=== PATIENT | male | born 1935 | race Caucasian/White ===

== ENCOUNTER 2020-03-28 13:42 | Inpatient (IN) | payer MEDICARE, MEDICAID ==
[~2020-03-28] VITALS: Ht 172.7 cm; Wt 87.0 kg
--- NOTE | 2020-03-28 14:01 | PHYS DOC ---
Past History Past Medical History: A-Fib, Diabetes, Hypertension Alcohol Use: None General Adult EDM: Chief Complaint: MEDICAL CLEARANCE HPI: HPI: Patient is an 84-year-old male, who [place], who has been referred for [facility] admission. according to report, patient has been exhibiting threatening behavior, and aggressiveness towards staff. The patient himself denies any complaints at this time. There are no alleviating or exacerbating factors to his symptoms. There is no medication list available to me that accompanied the patient's paperwork. Review of Systems: Review of Systems: Constitutional: Denies fever or chills Eyes: Denies change in visual acuity HENT: Denies nasal congestion or sore throat Respiratory: Denies cough or shortness of breath Cardiovascular: Denies chest pain or edema GI: Denies abdominal pain, nausea, vomiting, bloody stools or diarrhea : Denies dysuria Musculoskeletal: Denies back pain or joint pain Integument: Denies rash Neurologic: Denies headache, focal weakness or sensory changes Endocrine: Denies polyuria or polydipsia Lymphatic: Denies swollen glands Psychiatric: Denies depression or anxiety Heart Score: Risk Factors: Risk Factors: DM, Current or recent (<one month) smoker, HTN, HLP, family history of CAD, obesity. Risk Scores: Score 0 - 3: 2.5% MACE over next 6 weeks - Discharge Home Score 4 - 6: 20.3% MACE over next 6 weeks - Admit for Clinical Observation Score 7 - 10: 72.7% MACE over next 6 weeks - Early Invasive Strategies Physical Exam: PE: PHYSICAL EXAM: CONSTITUTIONAL: Well developed, well nourished HEAD: normocephalic, atraumatic EENT: PERRL, EOMI. Conjunctivae normal color, sclerae non-icteric; moist mucous membranes. NECK: Supple, non-tender; no meningismus. LUNGS: Lungs CTA, breathing even and unlabored. Normal air movement. HEART: Regular rate and rhythm, no murmur CHEST: No deformity; non-tender ABDOMEN: The abdomen is soft, and non-tender, no masses or bruits. EXTREM: Normal ROM; no deformity, no calf tenderness. Normal pulses palpable in all extremities. There is no pedal edema. SKIN: No rash; no diaphoresis NEURO: Alert; normal speech and cognition; CN's grossly intact; strength grossly intact without focal deficit. BACK: No CVA TTP. Current Patient Data: Labs: Laboratory Tests Test 03/28/20 14:06 03/28/20 14:10 Urine Collection Type Void Urine Color Yellow Urine Clarity Clear Urine pH 5.0 Urine Specific [place] 1.015 Urine Protein 30 mg/dl Urine Glucose (UA) Neg mg/dL Urine Ketones (Stick) Neg mg/dL Urine Blood Neg Urine Nitrite Neg Urine Bilirubin Neg Urine Urobilinogen Dipstick 0.2 mg/dL Urine Leukocyte Esterase Neg Urine RBC Rare /HPF Urine WBC 1-4 /HPF Urine Squamous Epithelial Cells Few /LPF Urine Bacteria 0 /HPF Urine Hyaline Casts Occ /HPF Urine Mucus Slight /LPF White Blood Count 7.6 x10^3/uL Red Blood Count 3.95 x10^6/uL Hemoglobin 13.6 g/dL Hematocrit 39.4 % Mean Corpuscular Volume 100 fL Mean Corpuscular Hemoglobin 35 pg Mean Corpuscular Hemoglobin Concent 35 g/dL Red Cell Distribution Width 13.4 % Platelet Count 226 x10^3/uL Neutrophils (%) (Auto) 73 % Lymphocytes (%) (Auto) 13 % Monocytes (%) (Auto) 8 % Eosinophils (%) (Auto) 5 % Basophils (%) (Auto) 1 % Neutrophils # (Auto) 5.5 x10^3uL Lymphocytes # (Auto) 1.0 x10^3/uL Monocytes # (Auto) 0.6 x10^3/uL Eosinophils # (Auto) 0.4 x10^3/uL Basophils # (Auto) 0.1 x10^3/uL Sodium Level 139 mmol/L Potassium Level 3.9 mmol/L Chloride Level 104 mmol/L Carbon Dioxide Level 24 mmol/L Anion Gap 11 Blood Urea Nitrogen 11 mg/dL Creatinine 0.8 mg/dL Estimated GFR (Cockcroft-Gault) 92.1 BUN/Creatinine Ratio 14 Glucose Level 123 mg/dL Calcium Level 8.4 mg/dL Magnesium Level 1.7 mg/dL Total Bilirubin 0.5 mg/dL Aspartate Amino Transf (AST/SGOT) 21 U/L Alanine Aminotransferase (ALT/SGPT) 32 U/L Alkaline Phosphatase 67 U/L Total Protein 6.3 g/dL Albumin 3.5 g/dL Albumin/Globulin Ratio 1.3 EKG: EKG: Atrial fibrillation at a rate of 80 bpm, normal axis, normal intervals. There are no acute ischemic ST/T changes. [] Radiology/Procedures: Radiology/Procedures: [] Course & Med Decision Making: Course & Med Decision Making Pertinent Labs studies reviewed. (See chart for details) [] Patient is medically clear for [facility] admission. Dragon Disclaimer: Dragon Disclaimer: This electronic medical record was generated, in whole or in part, using a voice recognition dictation system. Departure Departure: Impression: Primary Impression: Behavioral disorder Disposition: ADMITTED INPATIENT Condition: STABLE Referrals: ANIL JAEGER MD (PCP) Justification of Admission: Justification of Admission: Justification of Admission Dx: Yes Altered Mental Status: Altered Mental Status SAWYER CHACKO MD Mar 28, 2020 14:01
--- NOTE | 2020-03-28 14:20 | EKG ---
[address] [address] Test Date: 2020-03-28 Test Time: 13:59:19 Pat Name: LANE HALL Department: Room: Gender: Adaptive Physical Education Specialist: : [id number] Requested By: SAWYER CHACKO Order Number: [id number] Reading MD: Bronson Martin MD Measurements Intervals [place] Rate: P: NE: QRS: QRSD: T: QT: QTc: Interpretive Statements ATRIAL FIBRILLATION NON-SPECIFIC ST/T CHANGES Electronically Signed On 04-04-2020 13:26:06 CDT by Bronson Martin MD
[2020-03-28 14:30] LABS: BASO # 0.1 x10^3/uL (0.0-0.2); BASO % 1 % (0-3); EOS # 0.4 x10^3/uL (0.0-0.7); EOS % 5 % (0-3); HEMATOCRIT 39.4 % (39.0-53.0); HEMOGLOBIN 13.6 g/dL (13.0-17.5); LYMPH % 13 % (24-48); MEAN CORPUSCULAR HEMOGLOBIN 35 pg (25-35); MEAN CORPUSCULAR HGB CONC 35 g/dL (31-37); MEAN CORPUSCULAR VOLUME 100 fL (79-100); MONO # 0.6 x10^3/uL (0.0-1.1); MONO % 8 % (0-9); NEUT # 5.5 x10^3uL (1.8-7.7); NEUT % 73 % (31-73); PLATELET COUNT 226 x10^3/uL (140-400); RED BLOOD COUNT 3.95 x10^6/uL (4.30-5.70); RED CELL DISTRIBUTION WIDTH 13.4 % (11.5-14.5); WHITE BLOOD COUNT 7.6 x10^3/uL (4.0-11.0)
[2020-03-28 14:40] LABS: BACTERIA,URINE 0 /HPF (0-FEW); BILIRUBIN,URINE NEG (NEG); CLARITY,URINE CLEAR; COLOR,URINE YELLOW; GLUCOSE,URINE NEG (NEG); NITRITE,URINE NEG (NEG); RBC,URINE RARE /HPF (0-2); SQUAMOUS EPITHELIAL CELL,UR FEW /LPF; UROBILINOGEN,URINE 0.2 mg/dL (0.2 mg/dL)
[2020-03-28 14:41] LABS: CALCIUM 8.4 mg/dL (8.5-10.1); CREATININE 0.8 mg/dL (0.7-1.3); GFR 92.1; POTASSIUM 3.9 mmol/L (3.5-5.1)
[2020-03-28 14:41] LABS: HYALINE CASTS, URINE OCC /HPF
[2020-03-28 14:47] LABS: ALBUMIN 3.5 g/dL (3.4-5.0); ALBUMIN/GLOBULIN RATIO 1.3 (1.0-1.7); MAGNESIUM 1.7 mg/dL (1.8-2.4); TOTAL BILIRUBIN 0.5 mg/dL (0.2-1.0); TOTAL PROTEIN 6.3 g/dL (6.4-8.2)
--- NOTE | 2020-03-28 15:50 | NUR ---
Admission Note with Justification for Admission to [facility] Patient admitted to [facility] for protective oversight for emergency stabilization of acute psychiatric crisis. Pt admitted from: Hospital ER Mode of arrival: EMS Accompanied By: EMS Precipitating behaviors that initiated intake and admission: Increased s/s of depression when brother passed, increased verbal aggression, agitated, tells staff he has a gun in his room, threatening staff, talks of killing President, cursing, talks of running over peoples heads, vivid nightmares, barricades his room door, poor hygiene. Description of failure of out patient attempts at stabilization in previous setting list behavior and medication trials: redirection, decreased stimulation, started lexapro, UA. Behaviors and assessment findings upon admission: calm, cooperative, interactive, and compliant. No agitation, no aggression, no hallucination, no delusions. Pt states he is here d/t a misunderstanding. He stated someone overheard him state he wants to kill President Timoteo. Pt denies SI at this time. Plan: Admit for protective oversight for adjustment and stabilization of medications, behaviors and mood. Intense treatment regimen including groups, medication adjustments, therapy, consistent regimen for ADL's, self care, and sleep hygiene. Daily monitoring by Inpatient staff, Psychiatry, and Medical Physician.
[2020-03-28] MEDS ORDERED: METHYL SALICYLATE/MENTHOL TOPICAL OINTMENT 57GM TUBE. TP PRN (17:45)
[2020-03-28] MEDS ORDERED: MAGNESIUM HYDROXIDE 2,400 MG/30 ML ORAL.SUSP. PO PRN (17:45)
[2020-03-28] MEDS ORDERED: MAG HYDROX/AL HYDROX/SIMETH 30 ML ORAL.SUSP PO PRN (17:45)
[2020-03-28] MEDS ORDERED: FEXO180T81 PO (18:37)
[2020-03-28] MEDS ORDERED: IPRA3AMP29 NEB (18:37)
[2020-03-28] MEDS ORDERED: TAMS0.4C97 PO (18:37)
[2020-03-28] MEDS ORDERED: TIMO5DRO26 OD (18:37)
[2020-03-28] MEDS ORDERED: OMEP20TA8 PO (18:37)
[2020-03-28] MEDS ORDERED: GLIM2TAB7 PO ×2 (18:37→19:45)
[2020-03-28] MEDS ORDERED: CHOL4POW11 PO (18:37)
[2020-03-28] MEDS ORDERED: ESCITALOPRAM OX10 MG PO (18:37)
[2020-03-28] MEDS ORDERED: WARF1TAB2 PO ×2 (18:37)
[2020-03-28] MEDS ORDERED: DONE5TAB56 PO (18:37)
[2020-03-28] MEDS ORDERED: MELA3TAB4 PO (18:37)
[2020-03-28] MEDS ORDERED: FLUT16SP21 NS (18:37)
[2020-03-28] MEDS ORDERED: [UNRECOGNIZED DRUG - CODE] OD (18:37)
[2020-03-28] MEDS ORDERED: MULT-245 PO (18:37)
[2020-03-28] MEDS ORDERED: ATOR10TA60 PO (18:37)
[2020-03-28] MEDS ORDERED: METF10007 PO (18:37)
[2020-03-28] MEDS ORDERED: IRBE300T23 PO (18:37)
[2020-03-28] MEDS ORDERED: FURO-69 PO ×2 (18:37)
[2020-03-28] MEDS ORDERED: IPRA12.9 IH (19:45)
[2020-03-28] MEDS ORDERED: CHOL400T36 PO (19:45)
[2020-03-28] MEDS ORDERED: ACET500T68 PO (19:45)
[2020-03-28] MEDS ORDERED: FUROSEMIDE 20 MG TABLET PO PRN (20:00)
[2020-03-28] MEDS: PANTOPRAZOLE 40 MG TABLET. PO SCH (20:33)
[2020-03-28] MEDS: MELATONIN 3 MG TABLET PO SCH (20:33)
[2020-03-28] MEDS: DONEPEZIL HCL 5 MG TABLET. PO SCH (20:34)
[2020-03-28] MEDS: ACETAMINOPHEN 500 MG TABLET PO SCH (20:34)
[2020-03-28] MEDS: TIMOLOL 0.25% OPHTH SOLUTION 5ML BOTTLE. OD SCH (20:41)
[2020-03-28] MEDS ORDERED: IPRATROPIUM BROMIDE 0.06% NASAL SPRAY 15ML BOTTLE NS PRN (21:00)
--- NOTE | 2020-03-28 22:08 | NUR ---
Nursing note: Assumed care of pt in his room. He was very pleasant, cooperative, and interactive. He denies aggressive behavior and depression. He isn't sure why he is here. A&OX3, no pain, no behaviors.
--- NOTE | 2020-03-28 22:09 | PDOC ---
Exam Note: Xander Note: Please also refer to the separate dictated note~for this date of service dictated separately.~Patient seen individually. Discussed the patient with Nursing staff reviewed the chart.~Reviewed interim history and current functioning. Reviewed vital signs,~Labs/ Radiology~and current medications noted below. Continue current treatment with the changes noted in the dictated addendum note Assessment: Vital Signs/I&O: Vital Signs Date Time Temp Pulse Resp B/P (MAP) Pulse Ox O2 Delivery O2 Flow Rate FiO2 03/28/20 15:27 84 18 128/70 (89) 03/28/20 13:45 98.5 95 Room Air Labs: Laboratory Tests Test 03/28/20 14:06 03/28/20 14:10 Urine Collection Type Void Urine Color Yellow Urine Clarity Clear Urine pH 5.0 Urine Specific [place] 1.015 Urine Protein 30 mg/dl (NEG-TRACE) Urine Glucose (UA) Neg mg/dL (NEG) Urine Ketones (Stick) Neg mg/dL (NEG) Urine Blood Neg (NEG) Urine Nitrite Neg (NEG) Urine Bilirubin Neg (NEG) Urine Urobilinogen Dipstick 0.2 mg/dL (0.2 mg/dL) Urine Leukocyte Esterase Neg (NEG) Urine RBC Rare /HPF (0-2) Urine WBC 1-4 /HPF (0-4) Urine Squamous Epithelial Cells Few /LPF Urine Bacteria 0 /HPF (0-FEW) Urine Hyaline Casts Occ /HPF Urine Mucus Slight /LPF White Blood Count 7.6 x10^3/uL (4.0-11.0) Red Blood Count 3.95 x10^6/uL (4.30-5.70) L Hemoglobin 13.6 g/dL (13.0-17.5) Hematocrit 39.4 % (39.0-53.0) Mean Corpuscular Volume 100 fL (79-100) Mean Corpuscular Hemoglobin 35 pg (25-35) Mean Corpuscular Hemoglobin Concent 35 g/dL (31-37) Red Cell Distribution Width 13.4 % (11.5-14.5) Platelet Count 226 x10^3/uL (140-400) Neutrophils (%) (Auto) 73 % (31-73) Lymphocytes (%) (Auto) 13 % (24-48) L Monocytes (%) (Auto) 8 % (0-9) Eosinophils (%) (Auto) 5 % (0-3) H Basophils (%) (Auto) 1 % (0-3) Neutrophils # (Auto) 5.5 x10^3uL (1.8-7.7) Lymphocytes # (Auto) 1.0 x10^3/uL (1.0-4.8) Monocytes # (Auto) 0.6 x10^3/uL (0.0-1.1) Eosinophils # (Auto) 0.4 x10^3/uL (0.0-0.7) Basophils # (Auto) 0.1 x10^3/uL (0.0-0.2) Sodium Level 139 mmol/L (136-145) Potassium Level 3.9 mmol/L (3.5-5.1) Chloride Level 104 mmol/L (98-107) Carbon Dioxide Level 24 mmol/L (21-32) Anion Gap 11 (6-14) Blood Urea Nitrogen 11 mg/dL (8-26) Creatinine 0.8 mg/dL (0.7-1.3) Estimated GFR (Cockcroft-Gault) 92.1 BUN/Creatinine Ratio 14 (6-20) Glucose Level 123 mg/dL (70-99) H Calcium Level 8.4 mg/dL (8.5-10.1) L Magnesium Level 1.7 mg/dL (1.8-2.4) L Total Bilirubin 0.5 mg/dL (0.2-1.0) Aspartate Amino Transferase (AST) 21 U/L (15-37) Alanine Aminotransferase (ALT) 32 U/L (16-63) Alkaline Phosphatase 67 U/L (46-116) Total Protein 6.3 g/dL (6.4-8.2) L Albumin 3.5 g/dL (3.4-5.0) Albumin/Globulin Ratio 1.3 (1.0-1.7) Current Medications: Meds: Current Medications Medications (Trade) Dose Ordered Sig/Marcelo Route PRN Reason Start Time Stop Time Status Last Admin Dose Admin Donepezil HCl (Aricept) 5 mg QHS PO 03/28/20 21:00 03/28/20 20:34 Melatonin (Melatonin) 3 mg QHS PO 03/28/20 21:00 03/28/20 20:33 Acetaminophen (Tylenol) 1,000 mg BID PO 03/28/20 21:00 03/28/20 20:34 Pantoprazole Sodium (Protonix) 40 mg QHS PO 03/28/20 21:00 03/28/20 20:33 I have reviewed the current psychotropics carefully including drug interactions. Risk benefit ratio favors no change other than as noted in my dictated progress note. Diagnosis: Problems: (1) Behavioral disorder COURTNEY STARK MD Mar 28, 2020 22:09
[2020-03-29 05:27] VITALS: BP 141/88
--- NOTE | 2020-03-29 08:10 | RAD ---
EXAM: Head CT without contrast. HISTORY: Mental status changes. TECHNIQUE: Computed tomographic images of the head were obtained without contrast. *One or more of the following individualized dose reduction techniques were utilized for this examination: 1. Automated exposure control. 2. Adjustment of the mA and/or kV according to patient size. 3. Use of iterative reconstruction technique. COMPARISON: 02/22/2020. FINDINGS: There is no hemorrhage. There is no mass effect or midline shift. The ventricles are enlarged due to cerebral atrophy. There is no convincing hydrocephalus. There is decreased attenuation within the cerebral white matter, likely due to chronic small vessel disease. No suspicious calvarial lesion is seen. The visualized portions of the orbits, paranasal sinuses mastoid air cells are unremarkable. IMPRESSION: 1. No acute intracranial finding. Note is made that MRI is more sensitive for acute infarction. 2. Bilateral cerebral white matter changes, likely due to chronic small vessel disease. 3. Cerebral volume loss with compensatory enlargement of the ventricles. Electronically signed by: Brooklyn Munoz MD (03/29/2020 8:08 AM) [id number]
[2020-03-29] MEDS: ACETAMINOPHEN 500 MG TABLET PO SCH ×2 (09:16→19:48)
[2020-03-29] MEDS: metFORMIN 500 MG TABLET PO SCH ×2 (09:16→17:28)
[2020-03-29] MEDS: CITALOPRAM 20 MG TABLET. PO SCH (09:17)
[2020-03-29] MEDS: TAMSULOSIN 0.4 MG CAP.ER.24H. PO SCH (09:17)
[2020-03-29] MEDS: ATORVASTATIN CALCIUM 10 MG TABLET. PO SCH (09:17)
[2020-03-29] MEDS: MULTIVITAMIN with MINERAL TABLET. PO SCH (09:17)
[2020-03-29] MEDS: LOSARTAN 25 MG TABLET. PO SCH (09:18)
[2020-03-29] MEDS: GLIMEPIRIDE 2 MG TABLET PO SCH (09:18)
[2020-03-29] MEDS: CETIRIZINE HCL 10 MG TABLET PO SCH (09:18)
[2020-03-29] MEDS: FLUTICASONE 50MCG/NASAL SPRAY 16GM BOTTLE. NS SCH (09:19)
[2020-03-29] MEDS: CHOLESTYRAMINE/ASPARTAME 4 GM PACKET PO SCH (09:20)
[2020-03-29] MEDS: CHOLECALCIFEROL (VITAMIN D3) 1,000 UNIT TABLET PO SCH (09:20)
[2020-03-29] MEDS ORDERED: WARFARIN 1 MG TABLET. PO SCH (09:30)
[2020-03-29] MEDS ORDERED: MINERAL OIL/PETROLATUM TOPICAL CREAM 113GM JAR. TP PRN (11:45)
[2020-03-29 13:25] LABS: THYROID STIM HORMONE (TSH) 2.837 uIU/mL (0.358-3.740)
[2020-03-29] MEDS ORDERED: ANTI-COAG MONITOR BY PHARMACY. MC PRN (14:00)
--- NOTE | 2020-03-29 15:21 | NUR ---
PSYCHOSOCIAL ASSESSMENT ADMISSION DATE: 03/28/20 CONTACT INFORMATION: DPOA/Guardian Contact Name: Dez Kent Contact Phone #: [phone] ETHNIC ORIGIN: REASONS FOR ADMISSION: Aggressive Agitated Angry Depressed Poor impulse control Sig. Change Sleep Other ADDITIONAL ADMISSION COMMENTS: Per intake record, staff had observed Father to be increasingly depressed since the passing of his brother two months ago, increased verbal aggression, irritability, agitation, threatening staff, telling staff he had a gun in his room, cursing, talks of killing the president or running over peoples heads on the ground, barricading his room, poor personal hygiene, and having vivid nightmares. REASON FOR ADMISSION IN PATIENT/FAMILY'S OWN WORDS: Per Father, "The Dez got communication from the [facility] that I was depressed. I said I had a gun." PATIENT/FAMILY EXPECTATIONS FOR ADMISSION: Per Father, "To get out." LIVING SITUATION: Patient lives with: Other living arrangements: [facility] Contact Name: Gricelda-nurse Contact [address]: [address] [place] [id number] Contact Phone #: [phone] Contact Fax #: [phone] FAMILY RELATIONS: Marital Status: Single # of Marriages: 0 # of Children: 0 [facility] Family Support: Additional Comments r/t Family: Father Jayro's nieces and nephews are in touch with him via calls or e-mails. SIGNIFICANT PSYCHIATRIC/MEDICAL HISTORY: Psychiatric/Treatment History: Father Jayro reports no previous psychiatric treatment history. Pertinent Family History: Father Jayro reports no family history of mental illness or substance abuse. HISTORICAL DATA: Childhood Environment: [place] [facility] Additional Comments: Father Jayro was born in [place], [place] to Jonathan and Naomie Das. 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 Father Jayro was the seventh child born of nine boys. Father Jayro was one of three sets of twins. He had a twin brother named Mitchel. All siblings are . Father Jayro recalled his childhood as loving. His father was reported as strict but respected. 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 He also spoke about setting up a library in [facility] for the children and the quaker. Father reports, "I continue to live a monastic life even in the [facility]." service: None Confucianist background: Anabaptist, Father Jayro was raised in the Anabaptist quaker and his family attended services regularly. Sexual orientation: Educational Level: Father attended [employer]ab[employer]ist school and graduated from 12th grade. 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 Father was ordained in [place]. Past/Present Interests/Hobbies: Father has enjoyed traveling, mass, prayer, writing letters and e-mails, reading, and current events. Financial support/resources: Other Monthly income: Unknown, adequate Person handling finances: Dez Kent Do you have a history of legal problems: None Cultural considerations: SOCIAL RELATIONSHIPS-CURRENT/PAST: Psychiatrist: None PCP: Keila Graff Counselor/Therapist: None Veterans[facility] Administration: N/A Support Group: None [employer]ocad Draftsman/Sustainability Coordinator: None Other relationships: Attends coffee club with Sister Aleja three times weekly. STRENGTHS & WEAKNESSES: Patient's strengths: Good verbal skills Education level Ambulatory Patient's weaknesses: Impulsive Health problems Verbally Aggressive PRELIMINARY PLAN OF TREATMENT: Preliminary plan: Dec. Symp. Depression Promote Coping Skill Medication Stabilization Monitor Med Effects Dec. Outbursts Dec. Aggression Other preliminary treatment comments: Father Jayro will be encouraged to participate in SW and recreational therapy while on the unit. DISCHARGE PLANNING: Discharge planning/disposition: Other- [facility] Additional discharge needs identified: Follow up with PCP and psychiatry, if available. ADDITIONAL INFORMATION: Other Pertinent Data: Met with Father Jayro to support related to recent admit and complete psychosocial assessment. Call placed to JAC Tran, with intent to invite to treatment team on 03/31/20. Awaiting return phone call.
--- NOTE | 2020-03-29 15:51 | CONS ---
DATE OF CONSULTATION: 03/29/2020 REASON FOR CONSULTATION: Medical management. 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 Barricades his room door and has poor hygiene, all this in a background of psychotic disorder, unspecified; impulse control disorder. PAST MEDICAL HISTORY: Significant for hypertension, hyperlipidemia, atrial fibrillation, benign prostatic hypertrophy, glaucoma, type 2 diabetes and gastroesophageal reflux disease. He also have obstructive sleep apnea, on CPAP. PAST PSYCHIATRIC HISTORY: Significant for depression and Alzheimer's dementia. PAST SURGICAL HISTORY: Significant for umbilical hernia repair and laser treatment of enlarged prostate. ALLERGIES: He is allergic to ACETAMINOPHEN, CHLORPHENIRAMINE, OXYMETAZOLINE, PHENYLEPHRINE and PSEUDOEPHEDRINE. MEDICATIONS: He is currently on following medications: He is on fexofenadine 180 mg once a day, Aricept 5 mg at bedtime, ipratropium bromide 2 puffs 4 times a day, Flomax 0.4 mg daily, warfarin 2 mg q. Saturday. Warfarin 1 mg daily. He is on cholestyramine with sugar 4 grams powder pack 1/2 a packet daily, atorvastatin calcium 10 mg at bedtime, irbesartan 375 mg once a day, Tylenol 1000 mg twice a day, escitalopram oxalate 10 mg daily, furosemide 20 mg once a day, furosemide 20 mg as needed. Flonase 2 sprays to each nostril once a day, timolol 1 drop to both eyes at bedtime, pilocarpine 1 drop to both eyes twice a day, omeprazole 20 mg at bedtime, metformin 1000 mg twice a day. Glimepiride 2 mg once a day ____ 2 mg daily, multivitamin 1 tablet once a day, melatonin 3 mg at bedtime. FAMILY HISTORY: Noncontributory. 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 He apparently does not smoke, does not drink alcohol or use recreational drugs. REVIEW OF SYSTEMS: The patient did complain of pain in his knee joints and that he is unsteady on his feet. He uses a walker. PHYSICAL EXAMINATION: GENERAL: When I saw him this afternoon, he looked well and was clearly in no apparent respiratory distress. No pallor, jaundice, cyanosis or thyromegaly. No jugular venous distention. No limb edema. VITAL SIGNS: Her heart rate was 86. His blood pressure was 141/88, temperature was 97.3, respiratory rate was 18 and oxygen saturation was 95%. HEAD, EYES, EARS, NOSE AND THROAT: Showed normocephalic, atraumatic. NECK: Supple. HEART: Showed normal first and second heart sounds. No gallop, rub or murmur. CHEST: Clear to auscultation. No crepitation or rhonchi. ABDOMEN: Distended, soft, nontender. NEUROLOGIC: He was awake, alert, responding appropriately. All cranial nerves intact. EXTREMITIES: He moves extremities without difficulty, ambulates with a walker. LABORATORY DATA: Showed a white cell count 7600, hemoglobin 13.6, hematocrit 39.4, MCV 100, and platelet count 226,000. Serum sodium was 139, potassium 3.9, chloride 104, bicarbonate 24, anion gap of 11, BUN 11, creatinine 0.8, estimated GFR was 92 mL per minute. Her glucose was 123, calcium was 8.4, magnesium was 1.7. Serum iron 65, TIBC was 260, iron saturation was 25%. Total bilirubin, AST, ALT, alkaline phosphatase were normal. Total protein 6.3, albumin 3.5. His serum triglycerides were 224, total cholesterol 123, LDL was 44, VLDL was 44 and non-HDL was 88, HDL cholesterol was 55 and the ratio was 3. His TSH was 2.837. Urinalysis was essentially unremarkable except mild proteinuria. Has had a CT scan of the head, which basically showed no hemorrhage. There is no mass effect or midline shift. The ventricles are enlarged due to cerebral atrophy. There is no convincing hydrocephalus. There is increased attenuation within the cerebral white matter, likely due to chronic small vessel disease. No suspicious calvarial lesion is seen. The visualized portions of the orbits, paranasal sinuses and mastoid air cells are unremarkable. 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 All this in a background of psychotic disorder, unspecified; impulse disorder. Medically, he has multiple medical problems including hypertension, hyperlipidemia, type 2 diabetes mellitus, benign prostatic hypertrophy, atrial fibrillation, and gastroesophageal reflux disease; however, by reviewing all his vital signs, lab work and medication, the patient all in all seemed to be medically stable. I would continue with all his current medication. I will review medications that are still pending and make any necessary recommendation. Thank you, Dr. Vilchis for allowing me to participate in the care of this patient. ALVERTO LOYOLA MD DR: KRISHNA/jalen JOB#: [id number] / [id number]
[2020-03-29 16:01] VITALS: BP 132/77
[2020-03-29] MEDS: WARFARIN 1 MG TABLET. PO SCH (17:28)
[2020-03-29] MEDS: PANTOPRAZOLE 40 MG TABLET. PO SCH (19:48)
[2020-03-29] MEDS: MELATONIN 3 MG TABLET PO SCH (19:48)
[2020-03-29] MEDS: TIMOLOL 0.25% OPHTH SOLUTION 5ML BOTTLE. OD SCH (19:48)
[2020-03-29] MEDS: DONEPEZIL HCL 5 MG TABLET. PO SCH (19:48)
[2020-03-29] MEDS: QUEtiapine 25 MG TABLET. PO SCH (19:52)
[2020-03-29] MEDS: MINERAL OIL/PETROLATUM TOPICAL CREAM 113GM JAR. TP SCH (19:52)
[2020-03-29 20:06] LABS: THYROXINE 6.1 ug/dL (4.5-12.0)
--- NOTE | 2020-03-29 21:47 | NUR ---
Nursing note: Assumed care of pt in his room. He is interactive, pleasant, compliant, A&OX3. No behaviors, no c/o pain.
--- NOTE | 2020-03-29 21:51 | PDOC ---
Exam Note: Xander Note: Please also refer to the separate dictated note~for this date of service dictated separately.~Patient seen individually. Discussed the patient with Nursing staff reviewed the chart.~Reviewed interim history and current functioning. Reviewed vital signs,~Labs/ Radiology~and current medications noted below. Continue current treatment with the changes noted in the dictated addendum note Assessment: Vital Signs/I&O: Vital Signs Date Time Temp Pulse Resp B/P (MAP) Pulse Ox O2 Delivery O2 Flow Rate FiO2 03/29/20 16:01 98.6 84 16 132/77 (95) 95 03/29/20 05:27 Room Air I & O 03/28/20 03/28/20 03/29/20 15:00 23:00 07:00 Intake Total 300 ml Balance 300 ml Current Medications: Meds: Current Medications Medications (Trade) Dose Ordered Sig/Marcelo Route PRN Reason Start Time Stop Time Status Last Admin Dose Admin Citalopram Hydrobromide (CeleXA) 20 mg DAILY PO 03/29/20 09:00 03/29/20 09:17 Atorvastatin Calcium (Lipitor) 10 mg DAILY PO 03/29/20 09:00 03/29/20 09:17 Fluticasone Propionate (Flonase) 2 spray DAILY NS 03/29/20 09:00 03/29/20 09:19 Glimepiride (Amaryl) 2 mg DAILY PO 03/29/20 09:00 03/29/20 09:18 Tamsulosin HCl (Flomax) 0.4 mg DAILY PO 03/29/20 09:00 03/29/20 09:17 Vitamin D (Vitamin D3) 2,000 unit DAILY PO 03/29/20 09:00 03/29/20 09:20 Cholestyramine Resin (Questran Light) 2 gm DAILY PO 03/29/20 09:00 03/29/20 09:20 Cetirizine HCl (ZyrTEC) 10 mg DAILY PO 03/29/20 09:00 03/29/20 09:18 Losartan Potassium (Cozaar) 25 mg DAILY PO 03/29/20 09:00 03/29/20 09:18 Metformin HCl (Glucophage) 1,000 mg BIDWMEALS PO 03/29/20 08:00 03/29/20 17:28 Multivitamins/ Calcium (Thera-M Plus) 1 tab DAILY PO 03/29/20 09:00 03/29/20 09:17 Warfarin Sodium (Coumadin) 1 mg QMTUTHSA PO 03/29/20 16:00 03/29/20 17:28 Quetiapine Fumarate (SEROquel) 25 mg QHS PO 03/29/20 21:00 03/29/20 19:52 Multi-Ingred Cream/Lotion/Oil/ Oint (Hydrocerin) 1 eli BID TP 03/29/20 21:00 03/29/20 19:52 I have reviewed the current psychotropics carefully including drug interactions. Risk benefit ratio favors no change other than as noted in my dictated progress note. Diagnosis: Problems: (1) Behavioral disorder (2) Psychotic disorder (3) Impulse control disorder COURTNEY STARK MD Mar 29, 2020 21:51
[2020-03-30 01:07] LABS: HEMOGLOBIN A1C 5.7 % (4.8-5.6)
--- NOTE | 2020-03-30 01:38 | HP ---
ADMIT DATE: 03/28/2020 PSYCHIATRIC ADMISSION HISTORY/EVALUATION "Father Jayro." IDENTIFYING DATA: The patient is an 84-year-old male, referred to us from [facility] in [place], [place], referred by Dr. Keila Smyth and her nurse practitioner on account of increasing symptoms of depression following the time when his brother . He has been increasingly verbally aggressive, agitated, telling staff he has a gun in his room, threatening staff. He talks about killing the president, but has no means or ability to do this since he is in a correction. He has been cursing at staff, talking about running over people's heads. He has been having vivid nightmares, barricades himself in his room. Has poor hygiene. He has been more forgetful and has failed outpatient psychiatric interventions resulting in this referral. CHIEF COMPLAINT: "I have lived most of the past several years in [facility]. I got out of [facility] because they were putting posts on the wall, encouraging people to kill a room service food server." HISTORY OF PRESENT ILLNESS: The patient has a history of early onset dementia, paranoia, worsening symptoms of depression. He has had sleep and appetite changes with increasing mood lability, at times somewhat grandiose as above. No active suicidal ideation. He has no clear homicidal ideation, but makes the above statements. He states he is frustrated with what is going on in politics in [facility]. I met with him at great length in his room the evening of 03/28/2020 shortly after he arrived on the unit. PAST PSYCHIATRIC HISTORY: As above. MEDICAL HISTORY: Positive for atrial fibrillation, diabetes mellitus, GERD, glaucoma, hyperlipidemia, hypertension, sleep apnea, he has a CPAP. History of umbilical hernia, status post [employer] prostate on 08/21/2017. ACCU-CHEKS: Daily. DIET: Regular ADA, takes medications whole. Ambulates with walker. UA on 03/28/2020 was negative. ALLERGIES: ____. CURRENT PSYCHOTROPICS: Aricept 5 mg a day, Lexapro 10 mg a day. FAMILY HISTORY: Noncontributory. SOCIAL HISTORY: No history of alcohol, drug abuse, physical, sexual or elder abuse. He is not known to be a perpetrator. MENTAL STATUS EXAMINATION: The patient was seen individually evening of 03/28/2020 in his room. He is oriented to himself. Thought it was 03/25/2020, knew that he was admitted earlier in the day. Abstraction fair, computation impaired, language function intact, attention span short. Mood and affect depressed. He is quite paranoid, suspicious. No active homicidal ideation. LABORATORY DATA: Reviewed. IMPRESSION: Major depressive disorder with psychotic features versus bipolar disorder, mixed with psychotic features, mild cognitive impairment versus major neurocognitive disorder, vascular with delusion, depression; impulse control disorder; anxiety disorder, unspecified. Rest as above. PLAN: Admit to Geropsychiatry Unit at [facility]. I will see the patient daily individually from a psychiatric standpoint, medical followup with Dr. Hahn. Continue the patient on his current psychotropics. Consider adding Seroquel as a mood stabilizer. Estimated length of stay 10-12 days. DISPOSITION: Plans back to correction when stable. COURTNEY STARK MD DR: JAIMIE/jalen JOB#: [id number] / [id number]
[2020-03-30 06:13] VITALS: BP 135/71
--- NOTE | 2020-03-30 07:57 | PDOC ---
Exam Note: Xander Note: This note is a late entry for 03/29/2020 covers elements not covered in my initial note. Subjective: The patient was seen face to face in the evening of 03/29/2020. Nursing report was with Rut MA. He slept 5-1/4 hours previous night. I met with him at some length in his room in the evening. He has been pleasant, compliant with treatment, has been talking about wishing that the President would . He has been obsessed that he cannot find his watch, remains paranoid. Review of Systems: Ambulation impaired with walker. No CV, , pulmonary, eye system symptoms on review. Mental Status Exam: Reasonably oriented. Speech is coherent. Abstraction fair. Computation is impaired. Language function intact. Attention span short. He is quite paranoid, suspicious. Laboratory Data: Reviewed. Impression: Major depressive disorder with psychotic features. Bipolar disorder mixed with psychotic features. Mild cognitive impairment. Major neurocognitive disorder vascular with delusion, depression. Plan: No change from initial note. Start Seroquel 25 mg h.s. Assessment: Vital Signs/I&O: Vital Signs Date Time Temp Pulse Resp B/P (MAP) Pulse Ox O2 Delivery O2 Flow Rate FiO2 03/30/20 06:13 98.1 71 16 135/71 (92) 97 03/29/20 05:27 Room Air I & O 03/29/20 03/29/20 03/30/20 15:00 23:00 07:00 Intake Total 840 ml 460 ml Balance 840 ml 460 ml Labs: Laboratory Tests Test 03/30/20 06:07 Prothrombin Time 20.8 SEC (9.4-11.4) H Prothrombin Time INR 2.0 (0.9-1.1) H Current Medications: Meds: Current Medications Medications (Trade) Dose Ordered Sig/Marcelo Route PRN Reason Start Time Stop Time Status Last Admin Dose Admin Citalopram Hydrobromide (CeleXA) 20 mg DAILY PO 03/29/20 09:00 03/29/20 09:17 Atorvastatin Calcium (Lipitor) 10 mg DAILY PO 03/29/20 09:00 03/29/20 09:17 Fluticasone Propionate (Flonase) 2 spray DAILY NS 03/29/20 09:00 03/29/20 09:19 Glimepiride (Amaryl) 2 mg DAILY PO 03/29/20 09:00 03/29/20 09:18 Tamsulosin HCl (Flomax) 0.4 mg DAILY PO 03/29/20 09:00 03/29/20 09:17 Vitamin D (Vitamin D3) 2,000 unit DAILY PO 03/29/20 09:00 03/29/20 09:20 Cholestyramine Resin (Questran Light) 2 gm DAILY PO 03/29/20 09:00 03/29/20 09:20 Cetirizine HCl (ZyrTEC) 10 mg DAILY PO 03/29/20 09:00 03/29/20 09:18 Losartan Potassium (Cozaar) 25 mg DAILY PO 03/29/20 09:00 03/29/20 09:18 Metformin HCl (Glucophage) 1,000 mg BIDWMEALS PO 03/29/20 08:00 03/29/20 17:28 Multivitamins/ Calcium (Thera-M Plus) 1 tab DAILY PO 03/29/20 09:00 03/29/20 09:17 Warfarin Sodium (Coumadin) 1 mg QMTUTHSA PO 03/29/20 16:00 03/29/20 17:28 Quetiapine Fumarate (SEROquel) 25 mg QHS PO 03/29/20 21:00 03/29/20 19:52 Multi-Ingred Cream/Lotion/Oil/ Oint (Hydrocerin) 1 eli BID TP 03/29/20 21:00 03/29/20 19:52 I have reviewed the current psychotropics carefully including drug interactions. Risk benefit ratio favors no change other than as noted in my dictated progress note. Diagnosis: Problems: (1) Major depressive disorder with psychotic features (2) Bipolar disorder, curr episode mixed, severe, with psychotic features (3) Major neurocognitive disorder (4) Dementia, vascular, with delirium (5) Dementia, vascular, with delusions (6) Anxiety disorder (7) Psychotic disorder (8) Impulse control disorder COURTNEY STARK MD Mar 30, 2020 07:57
[2020-03-30] MEDS: PILOCARPINE 1% OPHTH SOLUTION 15ML BOTTLE. OD SCH ×2 (09:00→19:52)
[2020-03-30] MEDS: metFORMIN 500 MG TABLET PO SCH ×2 (09:25→16:30)
[2020-03-30] MEDS: CITALOPRAM 20 MG TABLET. PO SCH (09:25)
[2020-03-30] MEDS: ATORVASTATIN CALCIUM 10 MG TABLET. PO SCH (09:25)
[2020-03-30] MEDS: LOSARTAN 25 MG TABLET. PO SCH (09:25)
[2020-03-30] MEDS: GLIMEPIRIDE 2 MG TABLET PO SCH (09:25)
[2020-03-30] MEDS: MINERAL OIL/PETROLATUM TOPICAL CREAM 113GM JAR. TP SCH ×2 (09:25→19:53)
[2020-03-30] MEDS: CETIRIZINE HCL 10 MG TABLET PO SCH (09:25)
[2020-03-30] MEDS: CHOLECALCIFEROL (VITAMIN D3) 1,000 UNIT TABLET PO SCH (09:25)
[2020-03-30] MEDS: TAMSULOSIN 0.4 MG CAP.ER.24H. PO SCH (09:26)
[2020-03-30] MEDS: CHOLESTYRAMINE/ASPARTAME 4 GM PACKET PO SCH (09:26)
[2020-03-30] MEDS: MULTIVITAMIN with MINERAL TABLET. PO SCH (09:26)
[2020-03-30] MEDS: ACETAMINOPHEN 500 MG TABLET PO SCH ×2 (09:26→19:53)
[2020-03-30] MEDS: FUROSEMIDE 20 MG TABLET PO SCH (09:26)
[2020-03-30] MEDS: FLUTICASONE 50MCG/NASAL SPRAY 16GM BOTTLE. NS SCH (09:29)
[2020-03-30 15:51] VITALS: BP 127/72
[2020-03-30] MEDS: WARFARIN 2 MG TABLET. PO SCH (16:30)
--- NOTE | 2020-03-30 18:45 | NUR ---
Patient has been calm, compliant, organized during this shift. He has mostly been withdrawn to his room, he did participate in afternoon group. Therapy and WATER/WASTEWATER ENGINEER reported that patient had complaint of difficulty urinating related to his penis being back in his scrotum. Report provided to MD, will continue to monitor.
[2020-03-30] MEDS: TIMOLOL 0.25% OPHTH SOLUTION 5ML BOTTLE. OD SCH (19:52)
[2020-03-30] MEDS: MELATONIN 3 MG TABLET PO SCH (19:53)
[2020-03-30] MEDS: DONEPEZIL HCL 10 MG TABLET PO SCH (19:53)
[2020-03-30] MEDS: PANTOPRAZOLE 40 MG TABLET. PO SCH (19:53)
[2020-03-30] MEDS: QUEtiapine 25 MG TABLET. PO SCH (19:53)
--- NOTE | 2020-03-30 22:12 | PDOC ---
Exam Note: Xander Note: Please also refer to the separate dictated note~for this date of service dictated separately.~Patient seen individually. Discussed the patient with Nursing staff reviewed the chart.~Reviewed interim history and current functioning. Reviewed vital signs,~Labs/ Radiology~and current medications noted below. Continue current treatment with the changes noted in the dictated addendum note Assessment: Vital Signs/I&O: Vital Signs Date Time Temp Pulse Resp B/P (MAP) Pulse Ox O2 Delivery O2 Flow Rate FiO2 03/30/20 15:51 98.2 82 16 127/72 (90) 96 03/29/20 05:27 Room Air I & O 03/29/20 03/29/20 03/30/20 15:00 23:00 07:00 Intake Total 840 ml 460 ml Balance 840 ml 460 ml Labs: Laboratory Tests Test 03/30/20 06:07 Prothrombin Time 20.8 SEC (9.4-11.4) H Prothrombin Time INR 2.0 (0.9-1.1) H Current Medications: Meds: Current Medications Medications (Trade) Dose Ordered Sig/Marcelo Route PRN Reason Start Time Stop Time Status Last Admin Dose Admin Furosemide (Lasix) 20 mg 3X/WEEK PO 03/30/20 09:00 03/30/20 09:26 Pilocarpine HCl (Pilocar) 1 drop BID OD 03/30/20 09:00 03/30/20 19:52 Warfarin Sodium (Coumadin) 2 mg QWE PO 03/30/20 16:00 03/30/20 16:30 Donepezil HCl (Aricept) 10 mg QHS PO 03/30/20 21:00 03/30/20 19:53 I have reviewed the current psychotropics carefully including drug interactions. Risk benefit ratio favors no change other than as noted in my dictated progress note. Diagnosis: Problems: (1) Dementia, vascular, with depression (2) Impulse control disorder (3) Psychotic disorder (4) Anxiety disorder (5) Dementia, vascular, with delusions (6) Bipolar disorder, curr episode mixed, severe, with psychotic features (7) Major neurocognitive disorder (8) Major depressive disorder with psychotic features COURTNEY STARK MD Mar 30, 2020 22:12
--- NOTE | 2020-03-30 23:00 | NUR ---
Early in shift pt was in day room watching TV and social with peers and staff. Meds were taken whole without difficulty. He said he has a problem voiding. He describes what sounds like a buried penis situation. He said it is difficult to control direction of stream of urine and it is a messy process. He does not recall consulting with a urologist about this. Otherwise he offers no complaints and is pleasant and cooperative.
[2020-03-31 05:29] VITALS: BP 143/90
--- NOTE | 2020-03-31 07:23 | PN ---
DATE: 03/30/2020 PSYCHIATRIC PROGRESS NOTE This late entry 03/30/2020 covers elements not covered in my initial note. SUBJECTIVE: I met with the patient evening of 03/30/2020. The patient slept 5-1/2 hours previous night. Discussed the patient with FRANCESCA Stoll. He has been pleasant, not aggressive, disruptive, somewhat delusional, depressed at times. He has complained of hurting and not talked about wanting to kill anyone including the president. He has been somatically preoccupied, complains of knee pain, problems with his penile area. REVIEW OF SYSTEMS: As noted above. No CV, GI system symptoms on review. MENTAL STATUS EXAM: Oriented to himself and situation. Speech is coherent, abstraction fair, computation impaired, language function intact, attention span short. Mood and affect somewhat dysphoric, but quite verbally interactive as I met with him, talked at length about the years he spent in [facility] on the risks associated with several priests being killed and a bolaños being killed as well, which he seemed to remember. LABORATORY DATA: Reviewed. IMPRESSION: Unchanged from initial note. PLAN: Increase Aricept from 5 mg a day to 10 mg a day. Maintain Lexapro 10 mg a day, Seroquel was initiated 25 mg at bedtime. We will adjust further as clinically indicated. MAN Yossi STARK MD DR: JAIMIE/jalen JOB#: [id number] / [id number]
[2020-03-31 08:10] LABS: BASO # 0.1 x10^3/uL (0.0-0.2); BASO % 2 % (0-3); EOS # 0.4 x10^3/uL (0.0-0.7); EOS % 7 % (0-3); HEMATOCRIT 37.2 % (39.0-53.0); HEMOGLOBIN 12.9 g/dL (13.0-17.5); LYMPH # 1.3 x10^3/uL (1.0-4.8); LYMPH % 19 % (24-48); MEAN CORPUSCULAR HEMOGLOBIN 35 pg (25-35); MEAN CORPUSCULAR HGB CONC 35 g/dL (31-37); MEAN CORPUSCULAR VOLUME 100 fL (79-100); MONO # 0.6 x10^3/uL (0.0-1.1); MONO % 9 % (0-9); NEUT # 4.2 x10^3uL (1.8-7.7); NEUT % 64 % (31-73); PLATELET COUNT 186 x10^3/uL (140-400); RED BLOOD COUNT 3.73 x10^6/uL (4.30-5.70); RED CELL DISTRIBUTION WIDTH 13.3 % (11.5-14.5); WHITE BLOOD COUNT 6.6 x10^3/uL (4.0-11.0)
[2020-03-31 08:19] LABS: ALBUMIN/GLOBULIN RATIO 1.1 (1.0-1.7); CALCIUM 8.1 mg/dL (8.5-10.1); CREATININE 0.8 mg/dL (0.7-1.3); GFR 92.1; POTASSIUM 3.8 mmol/L (3.5-5.1); TOTAL BILIRUBIN 0.5 mg/dL (0.2-1.0); TOTAL PROTEIN 5.7 g/dL (6.4-8.2)
[2020-03-31] MEDS: PILOCARPINE 1% OPHTH SOLUTION 15ML BOTTLE. OD SCH ×2 (09:00→21:20)
[2020-03-31] MEDS: MINERAL OIL/PETROLATUM TOPICAL CREAM 113GM JAR. TP SCH ×2 (09:00→21:00)
[2020-03-31] MEDS: CHOLESTYRAMINE/ASPARTAME 4 GM PACKET PO SCH (09:01)
[2020-03-31] MEDS: metFORMIN 500 MG TABLET PO SCH ×2 (09:05→17:00)
[2020-03-31] MEDS: FLUTICASONE 50MCG/NASAL SPRAY 16GM BOTTLE. NS SCH (09:05)
[2020-03-31] MEDS: TAMSULOSIN 0.4 MG CAP.ER.24H. PO SCH (09:05)
[2020-03-31] MEDS: CHOLECALCIFEROL (VITAMIN D3) 1,000 UNIT TABLET PO SCH (09:05)
[2020-03-31] MEDS: CETIRIZINE HCL 10 MG TABLET PO SCH (09:05)
[2020-03-31] MEDS: MULTIVITAMIN with MINERAL TABLET. PO SCH (09:05)
[2020-03-31] MEDS: CITALOPRAM 20 MG TABLET. PO SCH (09:06)
[2020-03-31] MEDS: GLIMEPIRIDE 2 MG TABLET PO SCH (09:06)
[2020-03-31] MEDS: ACETAMINOPHEN 500 MG TABLET PO SCH ×2 (09:06→21:20)
[2020-03-31] MEDS: LOSARTAN 25 MG TABLET. PO SCH (09:06)
[2020-03-31] MEDS: ATORVASTATIN CALCIUM 10 MG TABLET. PO SCH (09:06)
--- NOTE | 2020-03-31 10:33 | TX PLAN ---
Interdisciplinary Tx Plan Admission Information Mar 28, 2020 at 15:44 Legal Status (on Admission): Voluntary, DPOA DPOA/Guardian Name: Dez Kent Contact Other Contact Name: Jka- Other Contact Verified Code Status: DNR Allergies: Coded Allergies: acetaminophen (Verified Allergy, Unknown, 03/28/20) chlorpheniramine (Verified Allergy, Unknown, 03/28/20) oxymetazoline (Verified Allergy, Unknown, 03/28/20) pheniramine (Verified Allergy, Unknown, 03/28/20) phenylephrine (Verified Allergy, Unknown, 03/28/20) pseudoephedrine (Verified Allergy, Unknown, 03/28/20) Estimated Length of Stay: 10 Diagnoses Primary Diagnosis: Psychotic d/o unspecified; impulse control d/o Reasons for Admission: Aggressive, Agitated, Depressed, Sig. Change Sleep, Angry, Poor impulse control, Other Problem in Patient's Words: Per Father, "The Dez got communication from the [facility] that I was depressed. I said I had a gun." Additional Admission Comments: Per intake record, staff had observed Father to be increasingly depressed since the passing of his brother two months ago, increased verbal agresion, irritability, agitation, threatening staff, telling staff he had a gun in his room, cursing, talks of killing the preseident or running over peoples heads on the ground, barricading his room, poor personal hygiene, and having vivid nightmares. Problems Active Problems: Minimizes threatening statements he makes towards others Inactive Problems: Medication compliant Cooperative with assessments Pt Strengths/Limitations Ability for [place]: Fair Cognitive Functioning/Ability: Fair Communication Skills/Ability: Good Financial Resources: Good Insight/Judgement: Fair Intellectual Ability: Good Physical Health: Fair Social Skills: Fair Stability in Family: Fair Verbal Skills: Good Discharge Criteria Discharge Criteria: Adequate arrangements @DC, Adequate self-care, Improved behavior, Improved mood/thought Preliminary Discharge Plan Preliminary DC Plan: Other Other Arrangements: [facility] Special Precautions Fall Risk: High Initial D/C Plan Return to [facility] Identified Discharge Needs: Follow up with PCP and psychiatry if available. Currently Utilized Resources Currently Utilized Resources/P: PCP Support services provided by [facility] Referrals Community Resources: Psychiatry/counseling if available Identified Problems/Hx/Goals Objectives/Short-Term Goals Short Term Goals: Dec. Aggression, Dec. Outbursts, Dec. Symp. Depression, Medication Stabilization, Monitor Med Effects, Promote Coping Skill Short Term Goals in Patient's: "To get out" Interventions/Frequency Staff Interventions/Frequency&: Nursing provides scheduled safety checks, medication administration, assessments, and adl support. Psychiatry visits 3-5 times weekly. SW visits twice weekly. Encourage involvement in SW and recreational therapy groups. 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 He also spoke about setting up a library in [place] for the children and the roman catholic. Father reports, "I contine to live a monastic life even in the [facility]." Social: Trveling, mass, prayer, letter and email writing, reading, current events Education: Father attended [employer] school and graduated from 12th grade. 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 Father was ordained in [place]. Community Follow-up PCP Psychiatry/counseling, if available Community Provider/Family Inpu: Father Jayro participated in team meeting. Nurse Madison and Dez Garcia had other commitments. Treatment Plan Explained Patient/Logistics Project Manager had this treatment plan explained to him/her as indicated by the signature below and has been given the opportunity to ask questions and make suggestions: Date: Patient/Logistics Project Manager Signature: VIJI KHAN Mar 31, 2020 10:33
--- NOTE | 2020-03-31 10:42 | NUR ---
Call placed to Gricelda nurse at [facility] to inform that Father Jayro is averaging seven hours of sleep at night, eating well, is cooperative and complaint with nursing assessments. Father has attended recreational therapy groups and participated in team meeting today. He continues to minimize statements he previously made about harming others. Encouraged Father to express his feelings about issues versus threatening harm to others. Aricept has been increased and Seroquel has been initiated. Gricelda will be involved in treatment team next . Tentative d/c date of 04/01/20. Addendum: 03/31/20 at 1048 by VIJI HERNANDEZ On 03/30/20, DAVID met with Father to complete MMSE. Father scored 28/30 on MMSE. He had some difficulty completing the clock exercise but did so with cueing.
--- NOTE | 2020-03-31 12:30 | NUR ---
ACTIVITY THERAPY ASSESSMENT completed based on notes, interview, and observation. Before pt. was assessed, he came to several groups and interacted well and was appropriate. At time of assessment pt. was laying in bed and said it would be okay for AT to ask some questions. Pt. asked if it was okay if he could lay down which AT said it would be fine. Pt. was agitated as he just came from the lunch room where [employer] news was being played on the tv. Pt. expressed his dislike for [employer] news and the president. He said that Trump is all about fake news and "should be shot." Pt. said that he talks to one specific person at the [facility] and that they are interested in what is really happening. Pt. didn't want to stay in dining room because he said that it was 90 percent women and the nurses were Trump supporters and he would rather give up his meal than eat in the lunch room with everyone. Pt. expressed frustrations with staff support, mentioning he is unhappy with short doctors visits. Pt. denied any suicidal ideations and asked why he couldn't have his watch. AT explained unit protocol for personal belongings. Pt. did not except this explanation well. Pt. feels that he isn't being listened to by staff. When asked by AT what activities he likes pt. said writing letters, puzzles, reading, and had no interest in exercising. Pt. stated that he is too busy for any of these activities. Pt. said that he needed to get things done but this stay was an unexpected point in his life. Pt. did ask if he could get his nails clipped which was reported to SW by AT. 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 from previous comments. Initial goal aimed to increase time management and socialization: Pt. will participate in at least one Activity Therapy group per week.
[2020-03-31 15:33] VITALS: BP 147/78
[2020-03-31] MEDS: WARFARIN 1 MG TABLET. PO SCH (16:00)
--- NOTE | 2020-03-31 17:57 | NUR ---
Unit WOWs are not connecting to hospital network. Suppertime medications administered manually.
--- NOTE | 2020-03-31 18:09 | NUR ---
Patient has been withdrawn to his room most of the day. He has been calm and compliant interacting with me up until dinnertime when he had a flatter affect. The AT reported that patient was agitated at lunch. Will continue to monitor.
[2020-03-31] MEDS: QUEtiapine 25 MG TABLET. PO SCH (21:20)
[2020-03-31] MEDS: TIMOLOL 0.25% OPHTH SOLUTION 5ML BOTTLE. OD SCH (21:20)
[2020-03-31] MEDS: DONEPEZIL HCL 10 MG TABLET PO SCH (21:20)
[2020-03-31] MEDS: MELATONIN 3 MG TABLET PO SCH (21:20)
[2020-03-31] MEDS: PANTOPRAZOLE 40 MG TABLET. PO SCH (21:20)
--- NOTE | 2020-03-31 22:28 | PDOC ---
Exam Note: Xander Note: Please also refer to the separate dictated note~for this date of service dictated separately.~Patient seen individually. Discussed the patient with Nursing staff reviewed the chart.~Reviewed interim history and current functioning. Reviewed vital signs,~Labs/ Radiology~and current medications noted below. Continue current treatment with the changes noted in the dictated addendum note Assessment: Vital Signs/I&O: Vital Signs Date Time Temp Pulse Resp B/P (MAP) Pulse Ox O2 Delivery O2 Flow Rate FiO2 03/31/20 15:33 98.3 79 18 147/78 (101) 95 03/31/20 05:29 Room Air I & O 03/30/20 03/30/20 03/31/20 15:00 23:00 07:00 Intake Total 1440 ml 360 ml Balance 1440 ml 360 ml Labs: Laboratory Tests Test 03/31/20 06:05 White Blood Count 6.6 x10^3/uL (4.0-11.0) Red Blood Count 3.73 x10^6/uL (4.30-5.70) L Hemoglobin 12.9 g/dL (13.0-17.5) L Hematocrit 37.2 % (39.0-53.0) L Mean Corpuscular Volume 100 fL (79-100) Mean Corpuscular Hemoglobin 35 pg (25-35) Mean Corpuscular Hemoglobin Concent 35 g/dL (31-37) Red Cell Distribution Width 13.3 % (11.5-14.5) Platelet Count 186 x10^3/uL (140-400) Neutrophils (%) (Auto) 64 % (31-73) Lymphocytes (%) (Auto) 19 % (24-48) L Monocytes (%) (Auto) 9 % (0-9) Eosinophils (%) (Auto) 7 % (0-3) H Basophils (%) (Auto) 2 % (0-3) Neutrophils # (Auto) 4.2 x10^3uL (1.8-7.7) Lymphocytes # (Auto) 1.3 x10^3/uL (1.0-4.8) Monocytes # (Auto) 0.6 x10^3/uL (0.0-1.1) Eosinophils # (Auto) 0.4 x10^3/uL (0.0-0.7) Basophils # (Auto) 0.1 x10^3/uL (0.0-0.2) Prothrombin Time 20.6 SEC (9.4-11.4) H Prothrombin Time INR 2.0 (0.9-1.1) H Sodium Level 143 mmol/L (136-145) Potassium Level 3.8 mmol/L (3.5-5.1) Chloride Level 108 mmol/L (98-107) H Carbon Dioxide Level 29 mmol/L (21-32) Anion Gap 6 (6-14) Blood Urea Nitrogen 13 mg/dL (8-26) Creatinine 0.8 mg/dL (0.7-1.3) Estimated GFR (Cockcroft-Gault) 92.1 BUN/Creatinine Ratio 16 (6-20) Glucose Level 89 mg/dL (70-99) Calcium Level 8.1 mg/dL (8.5-10.1) L Total Bilirubin 0.5 mg/dL (0.2-1.0) Aspartate Amino Transferase (AST) 19 U/L (15-37) Alanine Aminotransferase (ALT) 30 U/L (16-63) Alkaline Phosphatase 57 U/L (46-116) Total Protein 5.7 g/dL (6.4-8.2) L Albumin 3.0 g/dL (3.4-5.0) L Albumin/Globulin Ratio 1.1 (1.0-1.7) Current Medications: I have reviewed the current psychotropics carefully including drug interactions. Risk benefit ratio favors no change other than as noted in my dictated progress note. Diagnosis: Problems: (1) Impulse control disorder (2) Psychotic disorder (3) Anxiety disorder (4) Dementia, vascular, with delusions (5) Bipolar disorder, curr episode mixed, severe, with psychotic features (6) Major neurocognitive disorder (7) Major depressive disorder with psychotic features (8) Dementia, vascular, with depression COURTNEY STARK MD Mar 31, 2020 22:28
--- NOTE | 2020-03-31 22:33 | NUR ---
Agapito sousa has been in his room. He took his meds without problems and was pleasant and social. He entioned president Timoteo and sad he had cut some articles about him from the paper and indicated he is not a Trump fan. He did not dwell on this or elaborate to this nurse.
[2020-04-01 05:59] VITALS: BP 148/83
[2020-04-01] MEDS: FLUTICASONE 50MCG/NASAL SPRAY 16GM BOTTLE. NS SCH (08:30)
[2020-04-01] MEDS: MULTIVITAMIN with MINERAL TABLET. PO SCH (08:30)
[2020-04-01] MEDS: PILOCARPINE 1% OPHTH SOLUTION 15ML BOTTLE. OD SCH ×2 (08:30→20:52)
[2020-04-01] MEDS: CHOLECALCIFEROL (VITAMIN D3) 1,000 UNIT TABLET PO SCH (08:31)
[2020-04-01] MEDS: FUROSEMIDE 20 MG TABLET PO SCH (08:31)
[2020-04-01] MEDS: TAMSULOSIN 0.4 MG CAP.ER.24H. PO SCH (08:31)
[2020-04-01] MEDS: CETIRIZINE HCL 10 MG TABLET PO SCH (08:31)
[2020-04-01] MEDS: metFORMIN 500 MG TABLET PO SCH ×2 (08:32→16:53)
[2020-04-01] MEDS: ACETAMINOPHEN 500 MG TABLET PO SCH ×2 (08:32→20:52)
[2020-04-01] MEDS: ATORVASTATIN CALCIUM 10 MG TABLET. PO SCH (08:32)
[2020-04-01] MEDS: LOSARTAN 25 MG TABLET. PO SCH (08:32)
[2020-04-01] MEDS: GLIMEPIRIDE 2 MG TABLET PO SCH (08:32)
[2020-04-01] MEDS: CHOLESTYRAMINE/ASPARTAME 4 GM PACKET PO SCH (08:33)
[2020-04-01] MEDS: MINERAL OIL/PETROLATUM TOPICAL CREAM 113GM JAR. TP SCH ×2 (09:15→20:53)
[2020-04-01 15:46] VITALS: BP 130/89
[2020-04-01] MEDS: WARFARIN 1 MG TABLET. PO SCH (16:52)
--- NOTE | 2020-04-01 18:13 | NUR ---
Patient has been withdrawn to his room most of the day between meals. He has been calm, compliant, and social with peers at meals. 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 Will continue to monitor.
[2020-04-01] MEDS: PANTOPRAZOLE 40 MG TABLET. PO SCH (20:51)
[2020-04-01] MEDS: DONEPEZIL HCL 10 MG TABLET PO SCH (20:51)
[2020-04-01] MEDS: TIMOLOL 0.25% OPHTH SOLUTION 5ML BOTTLE. OD SCH (20:52)
[2020-04-01] MEDS: MELATONIN 3 MG TABLET PO SCH (20:52)
[2020-04-01] MEDS: QUEtiapine 25 MG TABLET. PO SCH (20:52)
--- NOTE | 2020-04-01 22:22 | PDOC ---
Exam Note: Xander Note: Please also refer to the separate dictated note~for this date of service dictated separately.~Patient seen individually. Discussed the patient with Nursing staff reviewed the chart.~Reviewed interim history and current functioning. Reviewed vital signs,~Labs/ Radiology~and current medications noted below. Continue current treatment with the changes noted in the dictated addendum note Assessment: Vital Signs/I&O: Vital Signs Date Time Temp Pulse Resp B/P (MAP) Pulse Ox O2 Delivery O2 Flow Rate FiO2 04/01/20 15:46 97.4 81 18 130/89 (103) 97 03/31/20 05:29 Room Air I & O 03/31/20 03/31/20 04/01/20 15:00 23:00 07:00 Intake Total 960 ml 600 ml Balance 960 ml 600 ml Labs: Laboratory Tests Test 04/01/20 06:24 Prothrombin Time 21.8 SEC (9.4-11.4) H Prothrombin Time INR 2.1 (0.9-1.1) H Current Medications: Meds: Current Medications Medications (Trade) Dose Ordered Sig/Marcelo Route PRN Reason Start Time Stop Time Status Last Admin Dose Admin Warfarin Sodium (Coumadin) 1 mg QFR PO 04/01/20 16:00 04/01/20 16:52 Fluvoxamine Maleate (Luvox) 25 mg DAILY PO 04/01/20 09:00 04/03/20 23:50 04/01/20 08:33 I have reviewed the current psychotropics carefully including drug interactions. Risk benefit ratio favors no change other than as noted in my dictated progress note. Diagnosis: Problems: (1) Impulse control disorder (2) Psychotic disorder (3) Anxiety disorder (4) Dementia, vascular, with delusions (5) Dementia, vascular, with delirium (6) Bipolar disorder, curr episode mixed, severe, with psychotic features (7) Major neurocognitive disorder (8) Major depressive disorder with psychotic features (9) Dementia, vascular, with depression COURTNEY STARK MD Apr 01, 2020 22:21
--- NOTE | 2020-04-01 23:17 | PN ---
DATE: 03/31/2020 PSYCHIATRIC PROGRESS NOTE This late entry 03/31/2020 covers elements not covered in my initial note. SUBJECTIVE: I met with the patient in the evening and discussed with FRANCESCA Stoll. The patient also attended the treatment team meeting with the entire team in the morning including with FRANCESCA Renee; Riya, social service staff; and [place], activity therapy staff. The patient slept 7 hours previous night, average; compliant with medications. No suicidal or homicidal ideation, though at times, he still makes statements that he is angry at the current president. During the treatment team meeting, I explored his recall with detailed history. He states he completed high school and then went to the [employer] and then was in [employer] in [place] and then worked in [facility] and then finally returned to be at his current facility. 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 REVIEW OF SYSTEMS: No CV, , pulmonary, eye, ENT system symptoms on review. MENTAL STATUS EXAM: Reasonably oriented. Speech is coherent, abstraction fair, computation impaired, language function intact, attention span short. Mood and affect remain somewhat labile. LABORATORY DATA: Reviewed. IMPRESSION: Psychotic disorder, unspecified; obsessive-compulsive disorder, anxiety disorder, unspecified. PLAN: Continue psychotropics from initial note. Change the Celexa to Luvox 25 mg a day for 3 days, then 50 mg a day. Rest unchanged for now. COURTNEY STARK MD DR: JAIMIE/jalen JOB#: [id number] / [id number]
--- NOTE | 2020-04-01 23:24 | NUR ---
Pt located in his room all evening. Pt calm and interactive. A/O x4. States that he does want to kill Presbetty Mahmood because "he is running the nation into the ground". Pt states that he would kill him with grenades. Pt stated that he knows that he would never have the access to actually kill President Mahmood, but "if he could, he would." Pt states that he and another bottoming room inspector at his home speak about this all of the time. Pt compliant with whole medications and stayed withdrawn to his room all evening.
[2020-04-02 06:06] VITALS: BP 137/84
[2020-04-02 07:12] LABS: BASO # 0.1 x10^3/uL (0.0-0.2); BASO % 1 % (0-3); EOS # 0.4 x10^3/uL (0.0-0.7); EOS % 6 % (0-3); HEMATOCRIT 37.1 % (39.0-53.0); HEMOGLOBIN 12.5 g/dL (13.0-17.5); LYMPH # 1.3 x10^3/uL (1.0-4.8); LYMPH % 18 % (24-48); MEAN CORPUSCULAR HEMOGLOBIN 34 pg (25-35); MEAN CORPUSCULAR HGB CONC 34 g/dL (31-37); MEAN CORPUSCULAR VOLUME 101 fL (79-100); MONO # 0.7 x10^3/uL (0.0-1.1); MONO % 9 % (0-9); NEUT # 4.8 x10^3uL (1.8-7.7); NEUT % 66 % (31-73); PLATELET COUNT 194 x10^3/uL (140-400); RED BLOOD COUNT 3.69 x10^6/uL (4.30-5.70); RED CELL DISTRIBUTION WIDTH 13.2 % (11.5-14.5); WHITE BLOOD COUNT 7.3 x10^3/uL (4.0-11.0)
[2020-04-02 07:34] LABS: ALBUMIN/GLOBULIN RATIO 1.1 (1.0-1.7); CALCIUM 8.3 mg/dL (8.5-10.1); CREATININE 0.7 mg/dL (0.7-1.3); GFR 107.4; TOTAL BILIRUBIN 0.5 mg/dL (0.2-1.0); TOTAL PROTEIN 5.7 g/dL (6.4-8.2)
[2020-04-02] MEDS: metFORMIN 500 MG TABLET PO SCH ×2 (08:48→17:11)
[2020-04-02] MEDS: FLUTICASONE 50MCG/NASAL SPRAY 16GM BOTTLE. NS SCH (08:48)
[2020-04-02] MEDS: LOSARTAN 25 MG TABLET. PO SCH (08:49)
[2020-04-02] MEDS: GLIMEPIRIDE 2 MG TABLET PO SCH (08:49)
[2020-04-02] MEDS: ATORVASTATIN CALCIUM 10 MG TABLET. PO SCH (08:50)
[2020-04-02] MEDS: CHOLESTYRAMINE/ASPARTAME 4 GM PACKET PO SCH (08:50)
[2020-04-02] MEDS: TAMSULOSIN 0.4 MG CAP.ER.24H. PO SCH (08:50)
[2020-04-02] MEDS: MULTIVITAMIN with MINERAL TABLET. PO SCH (08:51)
[2020-04-02] MEDS: ACETAMINOPHEN 500 MG TABLET PO SCH ×2 (08:51→20:24)
[2020-04-02] MEDS: CETIRIZINE HCL 10 MG TABLET PO SCH (08:52)
[2020-04-02] MEDS: CHOLECALCIFEROL (VITAMIN D3) 1,000 UNIT TABLET PO SCH (08:52)
[2020-04-02] MEDS: MINERAL OIL/PETROLATUM TOPICAL CREAM 113GM JAR. TP SCH ×2 (08:58→20:25)
[2020-04-02] MEDS: PILOCARPINE 1% OPHTH SOLUTION 15ML BOTTLE. OD SCH ×2 (08:58→20:25)
--- NOTE | 2020-04-02 11:42 | NUR ---
Pt is compliant and cooperative. No aggression. pt states he feels angry however, he will not explain to the nurse what he is angry about. Pt is compliant with his medication and assessment.
[2020-04-02 15:56] VITALS: BP 139/80
[2020-04-02] MEDS: WARFARIN 1 MG TABLET. PO SCH (17:10)
[2020-04-02] MEDS: PANTOPRAZOLE 40 MG TABLET. PO SCH (20:24)
[2020-04-02] MEDS: DONEPEZIL HCL 10 MG TABLET PO SCH (20:24)
[2020-04-02] MEDS: MELATONIN 3 MG TABLET PO SCH (20:24)
[2020-04-02] MEDS: QUEtiapine 50 MG TABLET. PO SCH (20:24)
[2020-04-02] MEDS: TIMOLOL 0.25% OPHTH SOLUTION 5ML BOTTLE. OD SCH (20:25)
--- NOTE | 2020-04-02 22:17 | PDOC ---
Exam Note: Xander Note: Please also refer to the separate dictated note~for this date of service dictated separately.~Patient seen individually. Discussed the patient with Nursing staff reviewed the chart.~Reviewed interim history and current functioning. Reviewed vital signs,~Labs/ Radiology~and current medications noted below. Continue current treatment with the changes noted in the dictated addendum note Assessment: Vital Signs/I&O: Vital Signs Date Time Temp Pulse Resp B/P (MAP) Pulse Ox O2 Delivery O2 Flow Rate FiO2 04/02/20 15:56 98.0 90 18 139/80 (99) 96 04/02/20 06:06 Room Air I & O 04/01/20 04/01/20 04/02/20 15:00 23:00 07:00 Intake Total 600 ml 360 ml Output Total 500 ml Balance 600 ml 360 ml -500 ml Labs: Laboratory Tests Test 04/02/20 06:40 White Blood Count 7.3 x10^3/uL (4.0-11.0) Red Blood Count 3.69 x10^6/uL (4.30-5.70) L Hemoglobin 12.5 g/dL (13.0-17.5) L Hematocrit 37.1 % (39.0-53.0) L Mean Corpuscular Volume 101 fL (79-100) H Mean Corpuscular Hemoglobin 34 pg (25-35) Mean Corpuscular Hemoglobin Concent 34 g/dL (31-37) Red Cell Distribution Width 13.2 % (11.5-14.5) Platelet Count 194 x10^3/uL (140-400) Neutrophils (%) (Auto) 66 % (31-73) Lymphocytes (%) (Auto) 18 % (24-48) L Monocytes (%) (Auto) 9 % (0-9) Eosinophils (%) (Auto) 6 % (0-3) H Basophils (%) (Auto) 1 % (0-3) Neutrophils # (Auto) 4.8 x10^3uL (1.8-7.7) Lymphocytes # (Auto) 1.3 x10^3/uL (1.0-4.8) Monocytes # (Auto) 0.7 x10^3/uL (0.0-1.1) Eosinophils # (Auto) 0.4 x10^3/uL (0.0-0.7) Basophils # (Auto) 0.1 x10^3/uL (0.0-0.2) Prothrombin Time 20.6 SEC (9.4-11.4) H Prothrombin Time INR 2.0 (0.9-1.1) H Sodium Level 144 mmol/L (136-145) Potassium Level 4.0 mmol/L (3.5-5.1) Chloride Level 109 mmol/L (98-107) H Carbon Dioxide Level 26 mmol/L (21-32) Anion Gap 9 (6-14) Blood Urea Nitrogen 11 mg/dL (8-26) Creatinine 0.7 mg/dL (0.7-1.3) Estimated GFR (Cockcroft-Gault) 107.4 BUN/Creatinine Ratio 16 (6-20) Glucose Level 82 mg/dL (70-99) Calcium Level 8.3 mg/dL (8.5-10.1) L Total Bilirubin 0.5 mg/dL (0.2-1.0) Aspartate Amino Transferase (AST) 21 U/L (15-37) Alanine Aminotransferase (ALT) 27 U/L (16-63) Alkaline Phosphatase 59 U/L (46-116) Total Protein 5.7 g/dL (6.4-8.2) L Albumin 3.0 g/dL (3.4-5.0) L Albumin/Globulin Ratio 1.1 (1.0-1.7) Current Medications: Meds: Current Medications Medications (Trade) Dose Ordered Sig/Marcelo Route PRN Reason Start Time Stop Time Status Last Admin Dose Admin Quetiapine Fumarate (SEROquel) 50 mg QHS PO 04/02/20 21:00 04/02/20 20:24 I have reviewed the current psychotropics carefully including drug interactions. Risk benefit ratio favors no change other than as noted in my dictated progress note. 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
--- NOTE | 2020-04-02 23:28 | NUR ---
Pt located in his room this evening. Pt appears more irritable this evening, refusing to elaborate on any questions with this RN. Compliant with whole medications and shower.
[2020-04-03 06:12] VITALS: BP 155/91
[2020-04-03] MEDS: PILOCARPINE 1% OPHTH SOLUTION 15ML BOTTLE. OD SCH ×2 (09:00→20:37)
[2020-04-03] MEDS: FLUTICASONE 50MCG/NASAL SPRAY 16GM BOTTLE. NS SCH (09:19)
[2020-04-03] MEDS: metFORMIN 500 MG TABLET PO SCH ×2 (09:20→17:08)
[2020-04-03] MEDS: GLIMEPIRIDE 2 MG TABLET PO SCH (09:21)
[2020-04-03] MEDS: ATORVASTATIN CALCIUM 10 MG TABLET. PO SCH (09:23)
[2020-04-03] MEDS: LOSARTAN 25 MG TABLET. PO SCH (09:23)
[2020-04-03] MEDS: TAMSULOSIN 0.4 MG CAP.ER.24H. PO SCH (09:23)
[2020-04-03] MEDS: MULTIVITAMIN with MINERAL TABLET. PO SCH (09:24)
[2020-04-03] MEDS: CHOLESTYRAMINE/ASPARTAME 4 GM PACKET PO SCH (09:24)
[2020-04-03] MEDS: CHOLECALCIFEROL (VITAMIN D3) 1,000 UNIT TABLET PO SCH (09:25)
[2020-04-03] MEDS: MINERAL OIL/PETROLATUM TOPICAL CREAM 113GM JAR. TP SCH ×2 (09:25→21:00)
[2020-04-03] MEDS: CETIRIZINE HCL 10 MG TABLET PO SCH (09:25)
[2020-04-03] MEDS: ACETAMINOPHEN 500 MG TABLET PO SCH ×2 (09:25→20:37)
--- NOTE | 2020-04-03 11:04 | NUR ---
Pt is compliant and cooperative. No aggression. No agitation. Pt is compliant with his medication and assessment.
--- NOTE | 2020-04-03 13:30 | PN ---
DATE: 04/01/2020 This late entry 04/01/2020 covers elements not covered in my initial note. SUBJECTIVE: I met with the patient evening of 04/01/2020 in his room at length. Per FRANCESCA Stoll, the patient slept 6 hours previous night. He has been having some nightmares, but no aggressive behaviors, talking to nursing staff about that he has a secret. He has not made any specific threats to anyone, which is what prompted this admission. REVIEW OF SYSTEMS: No CV, , pulmonary, eye system symptoms on review. MENTAL STATUS EXAM: Reasonably oriented. Speech is coherent, abstraction fair, computation impaired, language function intact, attention span short. Mood and affect somewhat labile, but appropriate. LABORATORY DATA: Reviewed. IMPRESSION: Unchanged from initial note. PLAN: No change from initial note. MAN Yossi STARK MD DR: JAIMIE/jalen JOB#: [id number] / [id number]
--- NOTE | 2020-04-03 13:56 | PN ---
DATE: 04/02/2020 PSYCHIATRIC PROGRESS NOTE This late entry 04/02/2020 covers elements not covered in my initial note. SUBJECTIVE: I met with the patient at length in his room in the evening. Per FRANCESCA Renee, the patient slept 6-1/2 hours previous night. Previous night, reportedly, made a statement to nursing staff how much he dislike the president and vague statements that someone would use grenades in this situation. I have asked the nursing staff to check with FRANCESCA Brock to see if we have a duty to warn. We will check with legal on this since the patient's statements and this is what prompted his admission and remained persistent, even though as he has no ability to follow through with it. No CV, , pulmonary, eye system symptoms on review. He talked at length about [employer] and much that he knew about it and Mother Katelyn amongst other things as I met with him. REVIEW OF SYSTEMS: No CV, , pulmonary, eye system symptoms on review. MENTAL STATUS EXAM: Oriented reasonably. Speech is coherent, abstraction fair, computation impaired, language function intact, attention span short. Mood and affect remain somewhat labile. LABORATORY DATA: Reviewed. IMPRESSION: Major depressive disorder with psychotic features, rule out bipolar disorder with psychotic features, mild cognitive impairment. Rest unchanged. PLAN: Increase Seroquel from 25 mg at bedtime to 50 mg at bedtime. Rest unchanged for now. MAN Yossi STARK MD DR: JAIMIE/jalen JOB#: [id number] / [id number]
[2020-04-03 17:02] VITALS: BP 139/87
[2020-04-03] MEDS: WARFARIN 1 MG TABLET. PO SCH (17:08)
[2020-04-03] MEDS: MELATONIN 3 MG TABLET PO SCH (20:36)
[2020-04-03] MEDS: PANTOPRAZOLE 40 MG TABLET. PO SCH (20:36)
[2020-04-03] MEDS: QUEtiapine 50 MG TABLET. PO SCH (20:37)
[2020-04-03] MEDS: TIMOLOL 0.25% OPHTH SOLUTION 5ML BOTTLE. OD SCH (20:37)
[2020-04-03] MEDS: DONEPEZIL HCL 10 MG TABLET PO SCH (20:37)
--- NOTE | 2020-04-03 22:34 | NUR ---
Pt located in his room all evening. Compliant with whole medications. Pt stated that he is here because he and another monk were talking about killing President Timoteo. Pt states that they were just joking and he doesn't own any weapons and would not be able to hurt the President.
--- NOTE | 2020-04-03 22:45 | PDOC ---
Exam Note: Xander Note: Please also refer to the separate dictated note~for this date of service dictated separately.~Patient seen individually. Discussed the patient with Nursing staff reviewed the chart.~Reviewed interim history and current functioning. Reviewed vital signs,~Labs/ Radiology~and current medications noted below. Continue current treatment with the changes noted in the dictated addendum note Assessment: Vital Signs/I&O: Vital Signs Date Time Temp Pulse Resp B/P (MAP) Pulse Ox O2 Delivery O2 Flow Rate FiO2 04/03/20 17:02 97.4 70 18 139/87 (104) 96 04/03/20 06:12 Room Air I & O 04/02/20 04/02/20 04/03/20 15:00 23:00 07:00 Intake Total 1080 ml 600 ml Balance 1080 ml 600 ml Current Medications: Meds: Current Medications Medications (Trade) Dose Ordered Sig/Marcelo Route PRN Reason Start Time Stop Time Status Last Admin Dose Admin Warfarin Sodium (Coumadin) 1 mg QSU PO 04/03/20 16:00 04/03/20 17:08 I have reviewed the current psychotropics carefully including drug interactions. Risk benefit ratio favors no change other than as noted in my dictated progress note. Diagnosis: Problems: (1) Behavioral disorder (2) Impulse control disorder (3) Psychotic disorder (4) Anxiety disorder (5) Dementia, vascular, with delusions (6) Dementia, vascular, with delirium (7) Bipolar disorder, curr episode mixed, severe, with psychotic features (8) Major neurocognitive disorder (9) Major depressive disorder with psychotic features (10) Dementia, vascular, with depression COURTNEY STARK MD Apr 03, 2020 22:45
[2020-04-04 06:04] VITALS: BP 164/73
[2020-04-04 06:38] LABS: BASO # 0.1 x10^3/uL (0.0-0.2); BASO % 1 % (0-3); EOS # 0.4 x10^3/uL (0.0-0.7); EOS % 7 % (0-3); HEMATOCRIT 36.4 % (39.0-53.0); HEMOGLOBIN 12.4 g/dL (13.0-17.5); LYMPH # 1.1 x10^3/uL (1.0-4.8); LYMPH % 19 % (24-48); MEAN CORPUSCULAR HEMOGLOBIN 34 pg (25-35); MEAN CORPUSCULAR HGB CONC 34 g/dL (31-37); MEAN CORPUSCULAR VOLUME 101 fL (79-100); MONO # 0.5 x10^3/uL (0.0-1.1); MONO % 9 % (0-9); NEUT # 3.7 x10^3uL (1.8-7.7); NEUT % 64 % (31-73); PLATELET COUNT 188 x10^3/uL (140-400); RED BLOOD COUNT 3.62 x10^6/uL (4.30-5.70); RED CELL DISTRIBUTION WIDTH 13.4 % (11.5-14.5); WHITE BLOOD COUNT 5.8 x10^3/uL (4.0-11.0)
[2020-04-04 06:47] LABS: ALBUMIN 2.9 g/dL (3.4-5.0); ALBUMIN/GLOBULIN RATIO 1.1 (1.0-1.7); CALCIUM 8.3 mg/dL (8.5-10.1); CREATININE 0.8 mg/dL (0.7-1.3); GFR 92.1; POTASSIUM 3.8 mmol/L (3.5-5.1); TOTAL BILIRUBIN 0.4 mg/dL (0.2-1.0); TOTAL PROTEIN 5.6 g/dL (6.4-8.2)
[2020-04-04] MEDS: FLUTICASONE 50MCG/NASAL SPRAY 16GM BOTTLE. NS SCH (08:43)
[2020-04-04] MEDS: metFORMIN 500 MG TABLET PO SCH ×2 (08:44→17:31)
[2020-04-04] MEDS: PILOCARPINE 1% OPHTH SOLUTION 15ML BOTTLE. OD SCH ×2 (08:44→20:33)
[2020-04-04] MEDS: GLIMEPIRIDE 2 MG TABLET PO SCH (08:44)
[2020-04-04] MEDS: ACETAMINOPHEN 500 MG TABLET PO SCH ×2 (08:45→20:33)
[2020-04-04] MEDS: TAMSULOSIN 0.4 MG CAP.ER.24H. PO SCH (08:45)
[2020-04-04] MEDS: ATORVASTATIN CALCIUM 10 MG TABLET. PO SCH (08:45)
[2020-04-04] MEDS: CETIRIZINE HCL 10 MG TABLET PO SCH (08:45)
[2020-04-04] MEDS: CHOLECALCIFEROL (VITAMIN D3) 1,000 UNIT TABLET PO SCH (08:46)
[2020-04-04] MEDS: MINERAL OIL/PETROLATUM TOPICAL CREAM 113GM JAR. TP SCH ×2 (08:46→20:33)
[2020-04-04] MEDS: LOSARTAN 25 MG TABLET. PO SCH (08:49)
[2020-04-04] MEDS: FUROSEMIDE 20 MG TABLET PO SCH (08:50)
[2020-04-04] MEDS: CHOLESTYRAMINE/ASPARTAME 4 GM PACKET PO SCH (08:50)
[2020-04-04] MEDS: MULTIVITAMIN with MINERAL TABLET. PO SCH (08:50)
--- NOTE | 2020-04-04 10:36 | NUR ---
Pt is compliant with his medication and assessment. Pt is compliant and cooperative. No aggression. No agitation.
--- NOTE | 2020-04-04 13:15 | NUR ---
After lunch pt was ambulating back to his room and appeared to lose his balance and bump into the door of the nurses station. ENDOCRINOLOGY NURSE approached pt and asked what he was doing and if he was ok and needed help? Pt began yelling at [facility] that she doesn't need to ask what he is doing and he can what he wants. ENDOCRINOLOGY NURSE attempted to deescalate pt however pt began to yell louder at [facility]. Staff X 3 assist had to redirect pt to his room. Nurse informed pt his behavior is not appropriate at this time.
[2020-04-04 16:08] VITALS: BP_SYST 111; BP_SYST 117; BP_DIAS 71; BP_DIAS 72
--- NOTE | 2020-04-04 17:21 | NUR ---
While walking past pts room nurse observed BROTHEL KEEPER and pt speaking. Pt began to yell at BROTHEL KEEPER. Pt stated "you don't tell me what to do! I'm not going!" BROTHEL KEEPER attempted to deescalate pt by validating and orienting pt. Pt continued to deflect BROTHEL KEEPER's questions. Nurse approached and reminded pt that he needed to come to dinner as he had medication to take, BROTHEL KEEPER happily encouraged pt again. Pt mocked BROTHEL KEEPER loudly. Pt told nurse to just take the medications. He also told the nurse "you can shove those medications." Pt stated he just wanted his nails trimmed with clippers, BROTHEL KEEPER checked pts toe nails and observed pt fingernails and offered pt an emery board or fingernail file after dinner as did the nurse. BROTHEL KEEPER and nurse reminded pt that nail clippers were not available as it is a safety issue and he is diabetic. Pt continued to be adamant that he was not attending dinner or taking his medication.
[2020-04-04] MEDS: WARFARIN 1 MG TABLET. PO SCH (17:31)
[2020-04-04] MEDS: DONEPEZIL HCL 10 MG TABLET PO SCH (20:33)
[2020-04-04] MEDS: QUEtiapine 50 MG TABLET. PO SCH (20:33)
[2020-04-04] MEDS: TIMOLOL 0.25% OPHTH SOLUTION 5ML BOTTLE. OD SCH (20:33)
[2020-04-04] MEDS: PANTOPRAZOLE 40 MG TABLET. PO SCH (20:33)
[2020-04-04] MEDS: MELATONIN 3 MG TABLET PO SCH (20:33)
--- NOTE | 2020-04-04 22:11 | PDOC ---
Exam Note: Xander Note: Please also refer to the separate dictated note~for this date of service dictated separately.~Patient seen individually. Discussed the patient with Nursing staff reviewed the chart.~Reviewed interim history and current functioning. Reviewed vital signs,~Labs/ Radiology~and current medications noted below. Continue current treatment with the changes noted in the dictated addendum note Assessment: Vital Signs/I&O: Vital Signs Date Time Temp Pulse Resp B/P (MAP) Pulse Ox O2 Delivery O2 Flow Rate FiO2 04/04/20 16:08 97.9 77 18 117/71 (86) 96 04/03/20 06:12 Room Air I & O 04/03/20 04/03/20 04/04/20 15:00 23:00 07:00 Intake Total 600 ml 600 ml Balance 600 ml 600 ml Labs: Laboratory Tests Test 04/04/20 06:10 White Blood Count 5.8 x10^3/uL (4.0-11.0) Red Blood Count 3.62 x10^6/uL (4.30-5.70) L Hemoglobin 12.4 g/dL (13.0-17.5) L Hematocrit 36.4 % (39.0-53.0) L Mean Corpuscular Volume 101 fL (79-100) H Mean Corpuscular Hemoglobin 34 pg (25-35) Mean Corpuscular Hemoglobin Concent 34 g/dL (31-37) Red Cell Distribution Width 13.4 % (11.5-14.5) Platelet Count 188 x10^3/uL (140-400) Neutrophils (%) (Auto) 64 % (31-73) Lymphocytes (%) (Auto) 19 % (24-48) L Monocytes (%) (Auto) 9 % (0-9) Eosinophils (%) (Auto) 7 % (0-3) H Basophils (%) (Auto) 1 % (0-3) Neutrophils # (Auto) 3.7 x10^3uL (1.8-7.7) Lymphocytes # (Auto) 1.1 x10^3/uL (1.0-4.8) Monocytes # (Auto) 0.5 x10^3/uL (0.0-1.1) Eosinophils # (Auto) 0.4 x10^3/uL (0.0-0.7) Basophils # (Auto) 0.1 x10^3/uL (0.0-0.2) Prothrombin Time 20.6 SEC (9.4-11.4) H Prothrombin Time INR 2.0 (0.9-1.1) H Sodium Level 144 mmol/L (136-145) Potassium Level 3.8 mmol/L (3.5-5.1) Chloride Level 108 mmol/L (98-107) H Carbon Dioxide Level 26 mmol/L (21-32) Anion Gap 10 (6-14) Blood Urea Nitrogen 11 mg/dL (8-26) Creatinine 0.8 mg/dL (0.7-1.3) Estimated GFR (Cockcroft-Gault) 92.1 BUN/Creatinine Ratio 14 (6-20) Glucose Level 85 mg/dL (70-99) Calcium Level 8.3 mg/dL (8.5-10.1) L Total Bilirubin 0.4 mg/dL (0.2-1.0) Aspartate Amino Transferase (AST) 21 U/L (15-37) Alanine Aminotransferase (ALT) 32 U/L (16-63) Alkaline Phosphatase 56 U/L (46-116) Total Protein 5.6 g/dL (6.4-8.2) L Albumin 2.9 g/dL (3.4-5.0) L Albumin/Globulin Ratio 1.1 (1.0-1.7) Current Medications: Meds: Current Medications Medications (Trade) Dose Ordered Sig/Marcelo Route PRN Reason Start Time Stop Time Status Last Admin Dose Admin Fluvoxamine Maleate (Luvox) 50 mg DAILY PO 04/04/20 09:00 04/04/20 08:50 I have reviewed the current psychotropics carefully including drug interactions. Risk benefit ratio favors no change other than as noted in my dictated progress note. Diagnosis: Problems: (1) Impulse control disorder (2) Psychotic disorder (3) Anxiety disorder (4) Dementia, vascular, with delusions (5) Dementia, vascular, with delirium (6) Bipolar disorder, curr episode mixed, severe, with psychotic features (7) Major neurocognitive disorder (8) Major depressive disorder with psychotic features (9) Dementia, vascular, with depression COURTNEY STARK MD Apr 04, 2020 22:11
--- NOTE | 2020-04-04 22:16 | NUR ---
Pt has been located in his room all evening. Compliant with whole medications and shower. Pt irritable and said he had a terrible day but refused to elaborate.
[2020-04-05 06:29] VITALS: BP 161/81
[2020-04-05] MEDS: MINERAL OIL/PETROLATUM TOPICAL CREAM 113GM JAR. TP SCH ×2 (09:00→20:17)
[2020-04-05] MEDS: CHOLESTYRAMINE/ASPARTAME 4 GM PACKET PO SCH (10:38)
[2020-04-05] MEDS: GLIMEPIRIDE 2 MG TABLET PO SCH (10:39)
[2020-04-05] MEDS: CHOLECALCIFEROL (VITAMIN D3) 1,000 UNIT TABLET PO SCH (10:39)
[2020-04-05] MEDS: ACETAMINOPHEN 500 MG TABLET PO SCH ×2 (10:39→20:16)
[2020-04-05] MEDS: ATORVASTATIN CALCIUM 10 MG TABLET. PO SCH (10:40)
[2020-04-05] MEDS: metFORMIN 500 MG TABLET PO SCH ×2 (10:40→16:29)
[2020-04-05] MEDS: LOSARTAN 25 MG TABLET. PO SCH (10:40)
[2020-04-05] MEDS: TAMSULOSIN 0.4 MG CAP.ER.24H. PO SCH (10:40)
[2020-04-05] MEDS: MULTIVITAMIN with MINERAL TABLET. PO SCH (10:40)
[2020-04-05] MEDS: CETIRIZINE HCL 10 MG TABLET PO SCH (10:40)
[2020-04-05] MEDS: FLUTICASONE 50MCG/NASAL SPRAY 16GM BOTTLE. NS SCH (10:41)
[2020-04-05] MEDS: PILOCARPINE 1% OPHTH SOLUTION 15ML BOTTLE. OD SCH ×2 (10:41→20:16)
--- NOTE | 2020-04-05 11:45 | NUR ---
Nursing note: Pt in his room for morning meds and assessment. He was pleasant, compliant with his meds whole, and cooperative with his assessment. Pt mentioned that he is skipping meals to fast. He was not willing to explain what he was fasting for. We then began to have a pleasant conversation about tenriism. Pt continues to remain in his room at this time. Will continue to monitor.
--- NOTE | 2020-04-05 15:31 | NUR ---
1:1 with Father this afternoon to provide socialization. Father had been engaged in the recreational therapy group prior to visit. He continues to express frustration/anger about the president of the [place]. Encouraged Father to focus on his behavior and what he could control, himself. Encouraged him to rely on his james and a higher power in control. Father accepted an afternoon snack and drink. He had reported fasting over the noon meal. He also accepted invite to team meeting on 04/07/20. Call placed to nurse Gricelda at [facility]. Progress report provided to Gricelda and current notes/labs/medication list was faxed for review. Gricelda also plans to be involved via phone at team meeting on 04/07/20. Medications are still being prescribed and adjusted and since Father started on a new medication on 04/04/20, Gricelda felt more comfortable with d/c around 04/12/20. Will follow.
[2020-04-05 15:38] VITALS: BP 153/90
[2020-04-05] MEDS: WARFARIN 1 MG TABLET. PO SCH (16:29)
[2020-04-05] MEDS: TIMOLOL 0.25% OPHTH SOLUTION 5ML BOTTLE. OD SCH (20:15)
[2020-04-05] MEDS: PANTOPRAZOLE 40 MG TABLET. PO SCH (20:16)
[2020-04-05] MEDS: QUEtiapine 50 MG TABLET. PO SCH (20:16)
[2020-04-05] MEDS: MELATONIN 3 MG TABLET PO SCH (20:16)
[2020-04-05] MEDS: DONEPEZIL HCL 10 MG TABLET PO SCH (20:16)
--- NOTE | 2020-04-05 22:04 | PDOC ---
Exam Note: Xander Note: Please also refer to the separate dictated note~for this date of service dictated separately.~Patient seen individually. Discussed the patient with Nursing staff reviewed the chart.~Reviewed interim history and current functioning. Reviewed vital signs,~Labs/ Radiology~and current medications noted below. Continue current treatment with the changes noted in the dictated addendum note Assessment: Vital Signs/I&O: Vital Signs Date Time Temp Pulse Resp B/P (MAP) Pulse Ox O2 Delivery O2 Flow Rate FiO2 04/05/20 15:38 98.1 89 18 153/90 (111) 95 04/03/20 06:12 Room Air I & O 04/04/20 04/04/20 04/05/20 14:59 22:59 06:59 Intake Total 600 ml 0 ml 100 ml Output Total 300 ml Balance 600 ml 0 ml -200 ml Current Medications: I have reviewed the current psychotropics carefully including drug interactions. Risk benefit ratio favors no change other than as noted in my dictated progress note. Diagnosis: Problems: (1) Impulse control disorder (2) Psychotic disorder (3) Anxiety disorder (4) Dementia, vascular, with delusions (5) Dementia, vascular, with delirium (6) Bipolar disorder, curr episode mixed, severe, with psychotic features (7) Major neurocognitive disorder (8) Major depressive disorder with psychotic features (9) Dementia, vascular, with depression COURTNEY STARK MD Apr 05, 2020 22:04
--- NOTE | 2020-04-05 22:24 | PN ---
DATE: 04/03/2020 PSYCHIATRIC PROGRESS NOTE This late entry 04/03/2020 covers the elements not covered in my initial note. SUBJECTIVE: I met with the patient in the evening. Per Thelma RN, the patient slept for three-quarter hours previous night. He was somewhat irritable at night, withdrawn during the day, on 04/03/2020, refusing to eat. REVIEW OF SYSTEMS: Ambulation impaired with walker. No CV, , pulmonary, eye system symptoms on review. MENTAL STATUS EXAM: Reasonably oriented. Speech is coherent, abstraction fair, computation impaired, language function intact. Mood and affect withdrawn. LABORATORY DATA: Reviewed. IMPRESSION: Unchanged from initial note. PLAN: No change from initial note. COURTNEY STARK MD DR: JAIMIE/jalen JOB#: [id number] / [id number]
--- NOTE | 2020-04-05 22:26 | PN ---
DATE: 04/04/2020 PSYCHIATRIC PROGRESS NOTE This late entry 04/04/2020 covers elements not covered in my initial note. SUBJECTIVE: I met with the patient evening of 04/04/2020. Per FRANCESCA Renee, the patient slept 6-3/4 hours previous night. Previous evening, he was fixated on wanting scissors to cut a trash bag, quite distressed with nursing staff when he was informed scissors could not be given to him due to unit regulations. He was unsteady in his gait one time, we will check postural hypotension as a cause of this. REVIEW OF SYSTEMS: Ambulation impaired with walker. No CV, , pulmonary, eye system symptoms on review. MENTAL STATUS EXAMINATION: Reasonably oriented. Speech is coherent, had some latency. Abstraction fair, computation impaired, language function intact. Mood and affect withdrawn. LABORATORY DATA: Reviewed. IMPRESSION: Unchanged from initial note. PLAN: No change from initial note. MAN Yossi STARK MD DR: JAIMIE/jalen JOB#: [id number] / [id number]
--- NOTE | 2020-04-06 00:35 | NUR ---
Nursing Note Had a long conversation about Boni Hyatt, and what brought him here. He was saying what he said was totally taken out of context by someone who didn't agree with his views. We talked about [place], and his travels through my home state. He brought up the [place] peaceable marches during the other rioting in other cities, and the water crisis, we talked at length about how that occurred. He was thankful for the intelligent conversation and that I had listened and took the time to have a real conversation.
[2020-04-06 05:53] VITALS: BP 132/82
[2020-04-06 06:31] LABS: BASO # 0.1 x10^3/uL (0.0-0.2); BASO % 1 % (0-3); EOS # 0.4 x10^3/uL (0.0-0.7); EOS % 5 % (0-3); HEMATOCRIT 37.1 % (39.0-53.0); HEMOGLOBIN 12.7 g/dL (13.0-17.5); LYMPH % 13 % (24-48); MEAN CORPUSCULAR HEMOGLOBIN 34 pg (25-35); MEAN CORPUSCULAR HGB CONC 34 g/dL (31-37); MEAN CORPUSCULAR VOLUME 100 fL (79-100); MONO # 0.7 x10^3/uL (0.0-1.1); MONO % 9 % (0-9); NEUT # 5.7 x10^3uL (1.8-7.7); NEUT % 73 % (31-73); PLATELET COUNT 192 x10^3/uL (140-400); RED BLOOD COUNT 3.71 x10^6/uL (4.30-5.70); RED CELL DISTRIBUTION WIDTH 13.2 % (11.5-14.5); WHITE BLOOD COUNT 7.8 x10^3/uL (4.0-11.0)
[2020-04-06 06:51] LABS: ALBUMIN 2.9 g/dL (3.4-5.0); ALBUMIN/GLOBULIN RATIO 1.1 (1.0-1.7); CALCIUM 8.2 mg/dL (8.5-10.1); CREATININE 0.7 mg/dL (0.7-1.3); GFR 107.4; POTASSIUM 3.5 mmol/L (3.5-5.1); TOTAL BILIRUBIN 0.7 mg/dL (0.2-1.0); TOTAL PROTEIN 5.6 g/dL (6.4-8.2)
[2020-04-06] MEDS: metFORMIN 500 MG TABLET PO SCH ×2 (08:00→15:34)
[2020-04-06] MEDS: GLIMEPIRIDE 2 MG TABLET PO SCH (08:44)
[2020-04-06] MEDS: MINERAL OIL/PETROLATUM TOPICAL CREAM 113GM JAR. TP SCH ×2 (09:00→20:12)
[2020-04-06] MEDS: MULTIVITAMIN with MINERAL TABLET. PO SCH (09:10)
[2020-04-06] MEDS: LOSARTAN 25 MG TABLET. PO SCH (09:10)
[2020-04-06] MEDS: CHOLESTYRAMINE/ASPARTAME 4 GM PACKET PO SCH (09:11)
[2020-04-06] MEDS: FLUTICASONE 50MCG/NASAL SPRAY 16GM BOTTLE. NS SCH (09:11)
[2020-04-06] MEDS: ATORVASTATIN CALCIUM 10 MG TABLET. PO SCH (09:11)
[2020-04-06] MEDS: ACETAMINOPHEN 500 MG TABLET PO SCH ×2 (09:11→20:12)
[2020-04-06] MEDS: CETIRIZINE HCL 10 MG TABLET PO SCH (09:12)
[2020-04-06] MEDS: TAMSULOSIN 0.4 MG CAP.ER.24H. PO SCH (09:12)
[2020-04-06] MEDS: FUROSEMIDE 20 MG TABLET PO SCH (09:12)
[2020-04-06] MEDS: CHOLECALCIFEROL (VITAMIN D3) 1,000 UNIT TABLET PO SCH (09:12)
[2020-04-06] MEDS: PILOCARPINE 1% OPHTH SOLUTION 15ML BOTTLE. OD SCH ×2 (09:24→20:12)
--- NOTE | 2020-04-06 11:08 | NUR ---
Patient is calm, cooperative and interactive with staff. Pt compliant with medications. Pt requesting to stay in bed with lights off, refusing breakfast due to fasting. RN asked why he was fasting, pt stated "oh, no real reason. You know Tramaine fasted for 40 days and 40 nights before he ." Pt states this is his last day of fasting. RN held diabetes medications. Pt did drink orange juice with medications. Pt talking about visiting [place] and other places around the world thanks to his brother. Dr Vilchis did inform nurse on Saturday that patient was stating he was going to go on a hunger strike if he did not get toe nail clippers. This RN spoke with patient about this. Issue was that 2nd toe on right foot was hurting, he thought due to toe nails. Small area of redness noted on knuckle of toe, suggested that he not wear his shoes for a couple of days and wear non skid socks to see if that helps his pain. Was compliant with that on Saturday. Will continue to investigate the reason for patients decision to fast as he told airport operations duty manager that it was for the children. WCTM.
[2020-04-06 15:38] VITALS: BP 155/94
[2020-04-06] MEDS: WARFARIN 2 MG TABLET. PO SCH (15:40)
[2020-04-06] MEDS: POTASSIUM CHLORIDE 20 MEQ TABLET.ER. PO SCH (16:00)
[2020-04-06] MEDS: TIMOLOL 0.25% OPHTH SOLUTION 5ML BOTTLE. OD SCH (20:12)
[2020-04-06] MEDS: MELATONIN 3 MG TABLET PO SCH (20:13)
[2020-04-06] MEDS: QUEtiapine 50 MG TABLET. PO SCH (20:13)
[2020-04-06] MEDS: PANTOPRAZOLE 40 MG TABLET. PO SCH (20:13)
[2020-04-06] MEDS: DONEPEZIL HCL 10 MG TABLET PO SCH (20:13)
--- NOTE | 2020-04-06 22:26 | PDOC ---
Exam Note: Xander Note: Please also refer to the separate dictated note~for this date of service dictated separately.~Patient seen individually. Discussed the patient with Nursing staff reviewed the chart.~Reviewed interim history and current functioning. Reviewed vital signs,~Labs/ Radiology~and current medications noted below. Continue current treatment with the changes noted in the dictated addendum note Assessment: Vital Signs/I&O: Vital Signs Date Time Temp Pulse Resp B/P (MAP) Pulse Ox O2 Delivery O2 Flow Rate FiO2 04/06/20 15:38 98.0 75 19 155/94 (114) 94 Room Air I & O 04/05/20 04/05/20 04/06/20 15:00 23:00 07:00 Intake Total 360 ml Balance 360 ml Labs: Laboratory Tests Test 04/06/20 05:35 White Blood Count 7.8 x10^3/uL (4.0-11.0) Red Blood Count 3.71 x10^6/uL (4.30-5.70) L Hemoglobin 12.7 g/dL (13.0-17.5) L Hematocrit 37.1 % (39.0-53.0) L Mean Corpuscular Volume 100 fL (79-100) Mean Corpuscular Hemoglobin 34 pg (25-35) Mean Corpuscular Hemoglobin Concent 34 g/dL (31-37) Red Cell Distribution Width 13.2 % (11.5-14.5) Platelet Count 192 x10^3/uL (140-400) Neutrophils (%) (Auto) 73 % (31-73) Lymphocytes (%) (Auto) 13 % (24-48) L Monocytes (%) (Auto) 9 % (0-9) Eosinophils (%) (Auto) 5 % (0-3) H Basophils (%) (Auto) 1 % (0-3) Neutrophils # (Auto) 5.7 x10^3uL (1.8-7.7) Lymphocytes # (Auto) 1.0 x10^3/uL (1.0-4.8) Monocytes # (Auto) 0.7 x10^3/uL (0.0-1.1) Eosinophils # (Auto) 0.4 x10^3/uL (0.0-0.7) Basophils # (Auto) 0.1 x10^3/uL (0.0-0.2) Sodium Level 142 mmol/L (136-145) Potassium Level 3.5 mmol/L (3.5-5.1) Chloride Level 107 mmol/L (98-107) Carbon Dioxide Level 28 mmol/L (21-32) Anion Gap 7 (6-14) Blood Urea Nitrogen 9 mg/dL (8-26) Creatinine 0.7 mg/dL (0.7-1.3) Estimated GFR (Cockcroft-Gault) 107.4 BUN/Creatinine Ratio 13 (6-20) Glucose Level 68 mg/dL (70-99) L Calcium Level 8.2 mg/dL (8.5-10.1) L Total Bilirubin 0.7 mg/dL (0.2-1.0) Aspartate Amino Transferase (AST) 21 U/L (15-37) Alanine Aminotransferase (ALT) 32 U/L (16-63) Alkaline Phosphatase 53 U/L (46-116) Total Protein 5.6 g/dL (6.4-8.2) L Albumin 2.9 g/dL (3.4-5.0) L Albumin/Globulin Ratio 1.1 (1.0-1.7) Current Medications: I have reviewed the current psychotropics carefully including drug interactions. Risk benefit ratio favors no change other than as noted in my dictated progress note. Diagnosis: Problems: (1) Impulse control disorder (2) Psychotic disorder (3) Anxiety disorder (4) Dementia, vascular, with delusions (5) Dementia, vascular, with delirium (6) Bipolar disorder, curr episode mixed, severe, with psychotic features (7) Major neurocognitive disorder (8) Major depressive disorder with psychotic features (9) Dementia, vascular, with depression COURTNEY STARK MD Apr 06, 2020 22:26
--- NOTE | 2020-04-07 00:06 | NUR ---
Nursing Note Pt pleasant and cooperative, eating ice cream this pm so apparently his fast is over. Accepts meds with issue, compliant with assessment is making small talk and smiling this pm. No agitation.
[2020-04-07 03:48] VITALS: BP 149/77
--- NOTE | 2020-04-07 08:38 | PDOC ---
Exam Note: Xander Note: This note is a late entry for 04/05/2020 covers elements not covered in my initial note. Subjective: The patient was seen face to face in the evening of 04/05/2020. Nursing report was with Jailene MA. He slept 7-1/4 hours previous night. He was upset because his room had been changed. He has been irritable, rude, has been fasting and when questioned he states this is because of his gnosticist and Tramaine fasted for 40 days. He did take his meds in orange juice. I met with him in his room in the evening. Review of Systems: Ambulation impaired with walker. No CV, , pulmonary, eye system symptoms on review. Mental Status Exam: Reasonably oriented. Speech is coherent, has some la tency. Abstraction fair. Computation is impaired. Language function intact. Attention span short. Mood and affect withdrawn. Laboratory Data: Reviewed. Impression: Major depressive disorder with psychotic features. Bipolar disorder mixed with psychotic features. Mild cognitive impairment. Psychotic disorder unspecified. Plan: No change from initial note. During the individual visit I addressed at length with him about restarting to eat meals and he states he will restart at the end of the day today. Assessment: Vital Signs/I&O: Vital Signs Date Time Temp Pulse Resp B/P (MAP) Pulse Ox O2 Delivery O2 Flow Rate FiO2 04/07/20 03:48 97.4 86 18 149/77 (101) 96 04/06/20 15:38 Room Air I & O 04/06/20 04/06/20 04/07/20 15:00 23:00 07:00 Intake Total 0 ml 240 ml Balance 0 ml 240 ml Labs: Laboratory Tests Test 04/07/20 06:08 Prothrombin Time 22.7 SEC (9.4-11.4) H Prothrombin Time INR 2.2 (0.9-1.1) H Current Medications: I have reviewed the current psychotropics carefully including drug interactions. Risk benefit ratio favors no change other than as noted in my dictated progress note. Diagnosis: Problems: (1) Impulse control disorder (2) Psychotic disorder (3) Anxiety disorder (4) Dementia, vascular, with delusions (5) Dementia, vascular, with delirium (6) Bipolar disorder, curr episode mixed, severe, with psychotic features (7) Major neurocognitive disorder (8) Major depressive disorder with psychotic features (9) Dementia, vascular, with depression COURTNEY STARK MD Apr 07, 2020 08:38
--- NOTE | 2020-04-07 08:41 | PDOC ---
Exam Note: Xander Note: This note is a late entry for 04/05/2020 covers elements not covered in my initial note. Subjective: The patient was seen face to face in the evening of 04/05/2020. Nursing report was with Jailene MA. He slept 7-1/4 hours previous night. He was upset because his room had been changed. He has been irritable, rude, has been fasting and when questioned he states this is because of his sabianist and Tramaine fasted for 40 days. He did take his meds in orange juice. I met with him in his room in the evening. Review of Systems: Ambulation impaired with walker. No CV, , pulmonary, eye system symptoms on review. Mental Status Exam: Reasonably oriented. Speech is coherent, has some lat ency. Abstraction fair. Computation is impaired. Language function intact. Attention span short. Mood and affect withdrawn. Laboratory Data: Reviewed. Impression: Major depressive disorder with psychotic features. Bipolar disorder mixed with psychotic features. Mild cognitive impairment. Psychotic disorder unspecified. Plan: No change from initial note. During the individual visit I addressed at length with him about restarting to eat meals and he states he will restart at the end of the day today. Assessment: Vital Signs/I&O: Vital Signs Date Time Temp Pulse Resp B/P (MAP) Pulse Ox O2 Delivery O2 Flow Rate FiO2 04/07/20 03:48 97.4 86 18 149/77 (101) 96 04/06/20 15:38 Room Air I & O 04/06/20 04/06/20 04/07/20 15:00 23:00 07:00 Intake Total 0 ml 240 ml Balance 0 ml 240 ml Labs: Laboratory Tests Test 04/07/20 06:08 Prothrombin Time 22.7 SEC (9.4-11.4) H Prothrombin Time INR 2.2 (0.9-1.1) H Current Medications: I have reviewed the current psychotropics carefully including drug interactions. Risk benefit ratio favors no change other than as noted in my dictated progress note. Diagnosis: Problems: (1) Impulse control disorder (2) Psychotic disorder (3) Anxiety disorder (4) Dementia, vascular, with delusions (5) Dementia, vascular, with delirium (6) Bipolar disorder, curr episode mixed, severe, with psychotic features (7) Major neurocognitive disorder (8) Major depressive disorder with psychotic features (9) Dementia, vascular, with depression COURTNEY STARK MD Apr 07, 2020 08:41
[2020-04-07] MEDS: CHOLESTYRAMINE/ASPARTAME 4 GM PACKET PO SCH (08:45)
[2020-04-07] MEDS: MINERAL OIL/PETROLATUM TOPICAL CREAM 113GM JAR. TP SCH ×2 (08:45→20:06)
[2020-04-07] MEDS: ATORVASTATIN CALCIUM 10 MG TABLET. PO SCH (08:45)
[2020-04-07] MEDS: metFORMIN 500 MG TABLET PO SCH ×2 (08:46→16:34)
[2020-04-07] MEDS: TAMSULOSIN 0.4 MG CAP.ER.24H. PO SCH (08:46)
[2020-04-07] MEDS: CHOLECALCIFEROL (VITAMIN D3) 1,000 UNIT TABLET PO SCH (08:46)
[2020-04-07] MEDS: GLIMEPIRIDE 2 MG TABLET PO SCH (08:46)
[2020-04-07] MEDS: CETIRIZINE HCL 10 MG TABLET PO SCH (08:46)
[2020-04-07] MEDS: FLUTICASONE 50MCG/NASAL SPRAY 16GM BOTTLE. NS SCH (08:47)
[2020-04-07] MEDS: LOSARTAN 25 MG TABLET. PO SCH (08:47)
[2020-04-07] MEDS: ACETAMINOPHEN 500 MG TABLET PO SCH ×2 (08:47→20:05)
[2020-04-07] MEDS: MULTIVITAMIN with MINERAL TABLET. PO SCH (08:47)
[2020-04-07] MEDS: PILOCARPINE 1% OPHTH SOLUTION 15ML BOTTLE. OD SCH ×2 (08:47→20:05)
--- NOTE | 2020-04-07 09:14 | PDOC ---
Exam Note: Xander Note: This note is a late entry for 04/06/2020 covers elements not covered in my initial note. Subjective: The patient was seen face to face in the evening of 04/06/2020. Nursing report was with Aleida MA. He slept 7-1/2 hours previous night. He was fasting at night and states he is doing it for the children and again reiterated how Tramaine had fasted for 40 days. He is drinking juice and water. Review of Systems: Ambulation impaired with walker. No CV, , pulmonary, eye system symptoms on review. Mental Status Exam: Reasonably oriented. Speech is coherent. Abstraction fair. Computation is impaired. Language function intact. Attention span short. Mood and affect withdrawn. Laboratory Data: Reviewed. Impression: Major depressive disorder with psychotic features. Bipolar disorder mixed with psychotic features. Mild cognitive impairment. Psychotic disorder unspecified. Plan: No change from initial note. Assessment: Vital Signs/I&O: Vital Signs Date Time Temp Pulse Resp B/P (MAP) Pulse Ox O2 Delivery O2 Flow Rate FiO2 04/07/20 08:47 86 149/77 04/07/20 03:48 97.4 18 96 04/06/20 15:38 Room Air I & O 04/06/20 04/06/20 04/07/20 15:00 23:00 07:00 Intake Total 0 ml 240 ml Balance 0 ml 240 ml Labs: Laboratory Tests Test 04/07/20 06:08 Prothrombin Time 22.7 SEC (9.4-11.4) H Prothrombin Time INR 2.2 (0.9-1.1) H Current Medications: I have reviewed the current psychotropics carefully including drug interactions. Risk benefit ratio favors no change other than as noted in my dictated progress note. Diagnosis: Problems: (1) Impulse control disorder (2) Psychotic disorder (3) Anxiety disorder (4) Dementia, vascular, with delusions (5) Dementia, vascular, with delirium (6) Bipolar disorder, curr episode mixed, severe, with psychotic features (7) Major neurocognitive disorder (8) Major depressive disorder with psychotic features (9) Dementia, vascular, with depression COURTNEY STARK MD Apr 07, 2020 09:14
--- NOTE | 2020-04-07 09:31 | NUR ---
WEEKLY ACTIVITY THERAPY NOTE Date of Admission:03/28/20 Date of AT Assessment: 03/31/20 Precipitating behaviors that initiated intake and admission: Increased s/s of depression when brother passed, increased verbal aggression, agitated, tells staff he has a gun in his room, threatening staff, talks of killing President, cursing, talks of running over peoples heads, vivid nightmares, barricades his room door, poor hygiene. Goal aimed:increase time management and socialization Initial Goal: Pt. will participate in at least one Activity Therapy group per week. Weekly progress towards goal: achieved, 2/ Group participation level: 1 full, 1 min Weekly highlights: engaged in group crossword and word scramble Behaviors observed: not around group very often, questioned why staff needed to know his name on Saturday Plan: no change to goal Beneficial adaptations:
--- NOTE | 2020-04-07 14:47 | TX PLAN ---
Interdisciplinary Tx Plan Admission Information Mar 28, 2020 at 15:44 Legal Status (on Admission): Voluntary, DPOA DPOA/Guardian Name: Dez Kent Contact Other Contact Name: Jak- Other Contact Verified Code Status: DNR Allergies: Coded Allergies: acetaminophen (Verified Allergy, Unknown, 03/28/20) chlorpheniramine (Verified Allergy, Unknown, 03/28/20) oxymetazoline (Verified Allergy, Unknown, 03/28/20) pheniramine (Verified Allergy, Unknown, 03/28/20) phenylephrine (Verified Allergy, Unknown, 03/28/20) pseudoephedrine (Verified Allergy, Unknown, 03/28/20) Estimated Length of Stay: 10 Diagnoses Primary Diagnosis: Psychotic d/o unspecified; impulse control d/o Reasons for Admission: Aggressive, Agitated, Depressed, Sig. Change Sleep, Angry, Poor impulse control, Other Problem in Patient's Words: Per Father, "The Dez got communication from the [facility] that I was depressed. I said I had a gun." Additional Admission Comments: Per intake record, staff had observed Father to be increasingly depressed since the passing of his brother two months ago, increased verbal agresion, irritability, agitation, threatening staff, telling staff he had a gun in his room, cursing, talks of killing the preseident or running over peoples heads on the ground, barricading his room, poor personal hygiene, and having vivid nightmares. Problems Active Problems: Minimizes threatening statements he makes towards others Inactive Problems: Medication compliant Cooperative with assessments Pt Strengths/Limitations Ability for Schoolcraft: Fair Cognitive Functioning/Ability: Fair Communication Skills/Ability: Good Financial Resources: Good Insight/Judgement: Fair Intellectual Ability: Good Physical Health: Fair Social Skills: Fair Stability in Family: Fair Verbal Skills: Good Discharge Criteria Discharge Criteria: Adequate arrangements @DC, Adequate self-care, Improved behavior, Improved mood/thought Preliminary Discharge Plan Preliminary DC Plan: Other Other Arrangements: [facility] Special Precautions Fall Risk: High Initial D/C Plan Return to [facility] Identified Discharge Needs: Follow up with PCP and psychiatry if available. Currently Utilized Resources Currently Utilized Resources/P: PCP Support services provided by [facility] Referrals Community Resources: Psychiatry/counseling if available Identified Problems/Hx/Goals Objectives/Short-Term Goals Short Term Goals: Dec. Aggression, Dec. Outbursts, Dec. Symp. Depression, Medication Stabilization, Monitor Med Effects, Promote Coping Skill Short Term Goals in Patient's: "To get out" Interventions/Frequency Staff Interventions/Frequency&: Nursing provides scheduled safety checks, medication administration, assessments, and adl support. Psychiatry visits 3-5 times weekly. SW visits twice weekly. Encourage involvement in SW and recreational therapy groups. 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 He also spoke about setting up a library in [facility] for the children and the bahai. 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 Father was ordained in [place]. Community Follow-up PCP Psychiatry/counseling, if available Community Provider/Family Inpu: Father Jaryo participated in team meeting. Nurse Madison and Dez Garcia had other commitments. Treatment Plan Explained Patient/Production Grip had this treatment plan explained to him/her as indicated by the signature below and has been given the opportunity to ask questions and make suggestions: Date: Patient/Production Grip Signature: Status Update Update WEEKLY NOTE/UPDATE: Father Jayro is averaging six hours of sleep at night. He has had periods of "fasting" this week where he has declined meal intakes but has resumed eating again this date. He can be condescending and irritable at times towards staff but has been medication compliant. He was initiated on Luvox for obsessive tendencies. spends most of his time in his room but has attended meals of choice in the dining area and was involved in two of the recreational therapy groups this week. Gricelda, nurse at [facility], participated in treatment team via phone. Estimated d/c date of 04/12/20. Discussed the above with Father after team meeting and he was in agreement. VIJI KHAN Apr 07, 2020 14:46
[2020-04-07 15:44] VITALS: BP 127/75
[2020-04-07] MEDS: WARFARIN 1 MG TABLET. PO SCH (16:34)
--- NOTE | 2020-04-07 18:09 | NUR ---
Patient has been withdrawn to his room most of the day between meals. He has been calm, compliant, and social with peers at meals. Will continue to monitor.
[2020-04-07] MEDS: TIMOLOL 0.25% OPHTH SOLUTION 5ML BOTTLE. OD SCH (20:05)
[2020-04-07] MEDS: QUEtiapine 50 MG TABLET. PO SCH (20:05)
[2020-04-07] MEDS: PANTOPRAZOLE 40 MG TABLET. PO SCH (20:05)
[2020-04-07] MEDS: MELATONIN 3 MG TABLET PO SCH (20:05)
[2020-04-07] MEDS: DONEPEZIL HCL 10 MG TABLET PO SCH (20:05)
--- NOTE | 2020-04-07 22:24 | PDOC ---
Exam Note: Xander Note: Please also refer to the separate dictated note~for this date of service dictated separately.~Patient seen individually. Discussed the patient with Nursing staff reviewed the chart.~Reviewed interim history and current functioning. Reviewed vital signs,~Labs/ Radiology~and current medications noted below. Continue current treatment with the changes noted in the dictated addendum note Assessment: Vital Signs/I&O: Vital Signs Date Time Temp Pulse Resp B/P (MAP) Pulse Ox O2 Delivery O2 Flow Rate FiO2 04/07/20 15:44 97.4 79 16 127/75 (92) 95 04/06/20 15:38 Room Air I & O 04/06/20 04/06/20 04/07/20 15:00 23:00 07:00 Intake Total 0 ml 240 ml Balance 0 ml 240 ml Labs: Laboratory Tests Test 04/07/20 06:08 Prothrombin Time 22.7 SEC (9.4-11.4) H Prothrombin Time INR 2.2 (0.9-1.1) H Current Medications: I have reviewed the current psychotropics carefully including drug interactions. Risk benefit ratio favors no change other than as noted in my dictated progress note. Diagnosis: Problems: (1) Impulse control disorder (2) Psychotic disorder (3) Anxiety disorder (4) Dementia, vascular, with delusions (5) Dementia, vascular, with delirium (6) Bipolar disorder, curr episode mixed, severe, with psychotic features (7) Major neurocognitive disorder (8) Major depressive disorder with psychotic features (9) Dementia, vascular, with depression COURTNEY STARK MD Apr 07, 2020 22:24
[2020-04-08 06:17] VITALS: BP 145/87
[2020-04-08 08:00] LABS: BASO % 1 % (0-3); EOS # 0.4 x10^3/uL (0.0-0.7); EOS % 6 % (0-3); HEMATOCRIT 36.6 % (39.0-53.0); HEMOGLOBIN 12.6 g/dL (13.0-17.5); LYMPH # 1.2 x10^3/uL (1.0-4.8); LYMPH % 19 % (24-48); MEAN CORPUSCULAR HEMOGLOBIN 35 pg (25-35); MEAN CORPUSCULAR HGB CONC 35 g/dL (31-37); MEAN CORPUSCULAR VOLUME 101 fL (79-100); MONO # 0.7 x10^3/uL (0.0-1.1); MONO % 11 % (0-9); NEUT % 64 % (31-73); PLATELET COUNT 204 x10^3/uL (140-400); RED BLOOD COUNT 3.63 x10^6/uL (4.30-5.70); RED CELL DISTRIBUTION WIDTH 13.3 % (11.5-14.5); WHITE BLOOD COUNT 6.2 x10^3/uL (4.0-11.0)
[2020-04-08 08:16] LABS: ALBUMIN 2.9 g/dL (3.4-5.0); CALCIUM 7.9 mg/dL (8.5-10.1); CREATININE 0.7 mg/dL (0.7-1.3); GFR 107.4; POTASSIUM 3.8 mmol/L (3.5-5.1); TOTAL BILIRUBIN 0.4 mg/dL (0.2-1.0); TOTAL PROTEIN 5.7 g/dL (6.4-8.2)
[2020-04-08] MEDS: POTASSIUM CHLORIDE 20 MEQ TABLET.ER. PO SCH (08:56)
[2020-04-08] MEDS: ATORVASTATIN CALCIUM 10 MG TABLET. PO SCH (08:56)
[2020-04-08] MEDS: PILOCARPINE 1% OPHTH SOLUTION 15ML BOTTLE. OD SCH ×2 (08:56→20:13)
[2020-04-08] MEDS: CHOLESTYRAMINE/ASPARTAME 4 GM PACKET PO SCH (08:56)
[2020-04-08] MEDS: CHOLECALCIFEROL (VITAMIN D3) 1,000 UNIT TABLET PO SCH (08:56)
[2020-04-08] MEDS: ACETAMINOPHEN 500 MG TABLET PO SCH ×2 (08:57→20:13)
[2020-04-08] MEDS: metFORMIN 500 MG TABLET PO SCH ×2 (08:57→17:18)
[2020-04-08] MEDS: MULTIVITAMIN with MINERAL TABLET. PO SCH (08:57)
[2020-04-08] MEDS: CETIRIZINE HCL 10 MG TABLET PO SCH (08:57)
[2020-04-08] MEDS: FUROSEMIDE 20 MG TABLET PO SCH (08:57)
[2020-04-08] MEDS: LOSARTAN 25 MG TABLET. PO SCH (08:57)
[2020-04-08] MEDS: GLIMEPIRIDE 2 MG TABLET PO SCH (08:58)
[2020-04-08] MEDS: MINERAL OIL/PETROLATUM TOPICAL CREAM 113GM JAR. TP SCH ×2 (08:58→20:14)
[2020-04-08] MEDS: FLUTICASONE 50MCG/NASAL SPRAY 16GM BOTTLE. NS SCH (08:58)
[2020-04-08] MEDS: TAMSULOSIN 0.4 MG CAP.ER.24H. PO SCH (08:58)
--- NOTE | 2020-04-08 11:47 | NUR ---
Nursing note: Pt was in his room for morning meds and assessment. He was pleasant, med compliant, and cooperative. Pt denied any pain. He did mention that he has had some vivid nightmares a couple nights while he has been here. He has been withdrawn to his room this morning. Will continue to monitor.
[2020-04-08 15:51] VITALS: BP 132/80
[2020-04-08] MEDS: WARFARIN 1 MG TABLET. PO SCH (17:18)
[2020-04-08] MEDS: QUEtiapine 50 MG TABLET. PO SCH (20:13)
[2020-04-08] MEDS: MELATONIN 3 MG TABLET PO SCH (20:13)
[2020-04-08] MEDS: DONEPEZIL HCL 10 MG TABLET PO SCH (20:13)
[2020-04-08] MEDS: PANTOPRAZOLE 40 MG TABLET. PO SCH (20:13)
[2020-04-08] MEDS: TIMOLOL 0.25% OPHTH SOLUTION 5ML BOTTLE. OD SCH (20:14)
--- NOTE | 2020-04-08 22:00 | NUR ---
Patient is in his room on assumption of care, awake in bed. He is in pleasant spirits this evening. Compliant with assessments and medications taken whole. No agitation. Denies any pain or discomfort. Denies SI/HI. Patient appears to be sleeping comfortably at present time. Will continue to monitor.
--- NOTE | 2020-04-08 22:42 | PDOC ---
Exam Note: Xander Note: Please also refer to the separate dictated note~for this date of service dictated separately.~Patient seen individually. Discussed the patient with Nursing staff reviewed the chart.~Reviewed interim history and current functioning. Reviewed vital signs,~Labs/ Radiology~and current medications noted below. Continue current treatment with the changes noted in the dictated addendum note Assessment: Vital Signs/I&O: Vital Signs Date Time Temp Pulse Resp B/P (MAP) Pulse Ox O2 Delivery O2 Flow Rate FiO2 04/08/20 15:51 98.1 85 16 132/80 (97) 95 04/06/20 15:38 Room Air I & O 04/07/20 04/07/20 04/08/20 15:00 23:00 07:00 Intake Total 720 ml 240 ml Balance 720 ml 240 ml Labs: Laboratory Tests Test 04/08/20 07:03 White Blood Count 6.2 x10^3/uL (4.0-11.0) Red Blood Count 3.63 x10^6/uL (4.30-5.70) L Hemoglobin 12.6 g/dL (13.0-17.5) L Hematocrit 36.6 % (39.0-53.0) L Mean Corpuscular Volume 101 fL (79-100) H Mean Corpuscular Hemoglobin 35 pg (25-35) Mean Corpuscular Hemoglobin Concent 35 g/dL (31-37) Red Cell Distribution Width 13.3 % (11.5-14.5) Platelet Count 204 x10^3/uL (140-400) Neutrophils (%) (Auto) 64 % (31-73) Lymphocytes (%) (Auto) 19 % (24-48) L Monocytes (%) (Auto) 11 % (0-9) H Eosinophils (%) (Auto) 6 % (0-3) H Basophils (%) (Auto) 1 % (0-3) Neutrophils # (Auto) 4.0 x10^3uL (1.8-7.7) Lymphocytes # (Auto) 1.2 x10^3/uL (1.0-4.8) Monocytes # (Auto) 0.7 x10^3/uL (0.0-1.1) Eosinophils # (Auto) 0.4 x10^3/uL (0.0-0.7) Basophils # (Auto) 0.0 x10^3/uL (0.0-0.2) Sodium Level 144 mmol/L (136-145) Potassium Level 3.8 mmol/L (3.5-5.1) Chloride Level 109 mmol/L (98-107) H Carbon Dioxide Level 26 mmol/L (21-32) Anion Gap 9 (6-14) Blood Urea Nitrogen 12 mg/dL (8-26) Creatinine 0.7 mg/dL (0.7-1.3) Estimated GFR (Cockcroft-Gault) 107.4 BUN/Creatinine Ratio 17 (6-20) Glucose Level 82 mg/dL (70-99) Calcium Level 7.9 mg/dL (8.5-10.1) L Total Bilirubin 0.4 mg/dL (0.2-1.0) Aspartate Amino Transferase (AST) 20 U/L (15-37) Alanine Aminotransferase (ALT) 28 U/L (16-63) Alkaline Phosphatase 54 U/L (46-116) Total Protein 5.7 g/dL (6.4-8.2) L Albumin 2.9 g/dL (3.4-5.0) L Albumin/Globulin Ratio 1.0 (1.0-1.7) Current Medications: I have reviewed the current psychotropics carefully including drug interactions. Risk benefit ratio favors no change other than as noted in my dictated progress note. Diagnosis: Problems: (1) Dementia, vascular, with depression (2) Major depressive disorder with psychotic features (3) Major neurocognitive disorder (4) Bipolar disorder, curr episode mixed, severe, with psychotic features (5) Dementia, vascular, with delirium (6) Dementia, vascular, with delusions (7) Anxiety disorder (8) Psychotic disorder (9) Impulse control disorder COURTNEY STARK MD Apr 08, 2020 22:42
--- NOTE | 2020-04-09 01:16 | PN ---
DATE: 04/07/2020 This late entry, 04/07, covers elements not covered in my initial note. SUBJECTIVE: I met with the patient evening of 04/07. Discussed with FRANCESCA Stoll in the evening. The patient was also staffed at a treatment team meeting with the entire team in the morning including Riya, social service staff; Gisele, activity therapy staff and FRANCESCA Kaiser. The patient has attended two of the activity therapy groups; otherwise for the last couple of days, has been withdrawn, isolative, refusing to eat, states he is fasting for reasons, he does not disclose. The nurse from [place], Olena Madison, attended the conference as well. He finally did break his fast morning and ate some breakfast. REVIEW OF SYSTEMS: Ambulation impaired with walker. No CV, , pulmonary, eye system symptoms on review. MENTAL STATUS EXAMINATION: The patient is reasonably oriented. Speech has some latency, coherent. Abstraction fair, computation impaired, language function intact, attention span short. Mood and affect somewhat withdrawn. LABORATORY DATA: Reviewed. IMPRESSION: Major depressive disorder with psychotic features; anxiety disorder, unspecified. PLAN: He has not made any further threats against the president, is more appropriate in his interaction, still withdrawn. Continue psychotropics from initial note including Luvox 50 mg a day for his OCD symptoms, melatonin 3 mg at bedtime, Seroquel 50 mg at bedtime, Aricept 10 mg a day. Adjust further as clinically indicated. COURTNEY STARK MD DR: JAIMIE/jalen JOB#: [id number] / [id number]
[2020-04-09 05:53] VITALS: BP 115/73
--- NOTE | 2020-04-09 07:43 | PDOC ---
Exam Note: Xander Note: This note is a late entry for 04/08/2020 covers elements not covered in my initial note. Subjective: The patient was seen individually in his room in the evening of 04/08/2020. Per Jailene MA, he slept 6 hours previous night. He has been pleasant. Appetite is better, coming out more. Review of Systems: Ambulation impaired with walker. No CV, , pulmonary, eye system symptoms on review. Mental Status Exam: Reasonably oriented. Speech is coherent. Abstraction fair. Computation is impaired. Language function intact. Attention span short. Mood and affect withdrawn. Laboratory Data: Reviewed. Impression: Major depressive disorder with psychotic features. Psychotic disorder unspecified. Impulse control disorder. Plan: Continue psychotropics from initial note. Assessment: Vital Signs/I&O: Vital Signs Date Time Temp Pulse Resp B/P (MAP) Pulse Ox O2 Delivery O2 Flow Rate FiO2 04/09/20 05:53 97.4 83 18 115/73 (87) 94 04/06/20 15:38 Room Air I & O 04/08/20 04/08/20 04/09/20 15:00 23:00 07:00 Intake Total 240 ml 240 ml Balance 240 ml 240 ml Current Medications: I have reviewed the current psychotropics carefully including drug interactions. Risk benefit ratio favors no change other than as noted in my dictated progress note. Diagnosis: Problems: (1) Major depressive disorder with psychotic features (2) Psychotic disorder (3) Impulse control disorder COURTNEY STARK MD Apr 09, 2020 07:43
[2020-04-09] MEDS: metFORMIN 500 MG TABLET PO SCH ×2 (08:24→17:03)
[2020-04-09] MEDS: FLUTICASONE 50MCG/NASAL SPRAY 16GM BOTTLE. NS SCH (08:24)
[2020-04-09] MEDS: LOSARTAN 25 MG TABLET. PO SCH (08:25)
[2020-04-09] MEDS: PILOCARPINE 1% OPHTH SOLUTION 15ML BOTTLE. OD SCH ×2 (08:25→21:02)
[2020-04-09] MEDS: GLIMEPIRIDE 2 MG TABLET PO SCH (08:25)
[2020-04-09] MEDS: TAMSULOSIN 0.4 MG CAP.ER.24H. PO SCH (08:25)
[2020-04-09] MEDS: ATORVASTATIN CALCIUM 10 MG TABLET. PO SCH (08:26)
[2020-04-09] MEDS: CHOLESTYRAMINE/ASPARTAME 4 GM PACKET PO SCH (08:26)
[2020-04-09] MEDS: MULTIVITAMIN with MINERAL TABLET. PO SCH (08:27)
[2020-04-09] MEDS: ACETAMINOPHEN 500 MG TABLET PO SCH ×2 (08:27→21:05)
[2020-04-09] MEDS: MINERAL OIL/PETROLATUM TOPICAL CREAM 113GM JAR. TP SCH ×2 (08:27→21:00)
[2020-04-09] MEDS: CHOLECALCIFEROL (VITAMIN D3) 1,000 UNIT TABLET PO SCH (08:27)
[2020-04-09] MEDS: CETIRIZINE HCL 10 MG TABLET PO SCH (08:27)
--- NOTE | 2020-04-09 09:46 | NUR ---
Pt is compliant with his medication and assessment. Pt is compliant and cooperative. No aggression. No agitation.
[2020-04-09 16:11] VITALS: BP 147/84
[2020-04-09] MEDS: WARFARIN 1 MG TABLET. PO SCH (17:03)
[2020-04-09] MEDS: DONEPEZIL HCL 10 MG TABLET PO SCH (21:03)
[2020-04-09] MEDS: PANTOPRAZOLE 40 MG TABLET. PO SCH (21:03)
[2020-04-09] MEDS: QUEtiapine 50 MG TABLET. PO SCH (21:03)
[2020-04-09] MEDS: MELATONIN 3 MG TABLET PO SCH (21:03)
[2020-04-09] MEDS: TIMOLOL 0.25% OPHTH SOLUTION 5ML BOTTLE. OD SCH (21:03)
--- NOTE | 2020-04-09 22:29 | PDOC ---
Exam Note: Xander Note: Please also refer to the separate dictated note~for this date of service dictated separately.~Patient seen individually. Discussed the patient with Nursing staff reviewed the chart.~Reviewed interim history and current functioning. Reviewed vital signs,~Labs/ Radiology~and current medications noted below. Continue current treatment with the changes noted in the dictated addendum note Assessment: Vital Signs/I&O: Vital Signs Date Time Temp Pulse Resp B/P (MAP) Pulse Ox O2 Delivery O2 Flow Rate FiO2 04/09/20 16:11 97.9 78 20 147/84 (105) 98 Room Air I & O 04/08/20 04/08/20 04/09/20 15:00 23:00 07:00 Intake Total 240 ml 240 ml Balance 240 ml 240 ml Current Medications: I have reviewed the current psychotropics carefully including drug interactions. Risk benefit ratio favors no change other than as noted in my dictated progress note. Diagnosis: Problems: (1) Major depressive disorder with psychotic features (2) Psychotic disorder (3) Impulse control disorder COURTNEY STARK MD Apr 09, 2020 22:29
[2020-04-10 06:10] VITALS: BP 159/84
[2020-04-10] MEDS: GLIMEPIRIDE 2 MG TABLET PO SCH (08:10)
[2020-04-10] MEDS: metFORMIN 500 MG TABLET PO SCH ×2 (08:10→17:12)
[2020-04-10] MEDS: ATORVASTATIN CALCIUM 10 MG TABLET. PO SCH (08:10)
[2020-04-10] MEDS: TAMSULOSIN 0.4 MG CAP.ER.24H. PO SCH (08:10)
[2020-04-10] MEDS: LOSARTAN 25 MG TABLET. PO SCH (08:10)
[2020-04-10] MEDS: CHOLECALCIFEROL (VITAMIN D3) 1,000 UNIT TABLET PO SCH (08:11)
[2020-04-10] MEDS: CETIRIZINE HCL 10 MG TABLET PO SCH (08:11)
[2020-04-10] MEDS: CHOLESTYRAMINE/ASPARTAME 4 GM PACKET PO SCH (08:11)
[2020-04-10] MEDS: ACETAMINOPHEN 500 MG TABLET PO SCH ×2 (08:11→19:59)
[2020-04-10] MEDS: MULTIVITAMIN with MINERAL TABLET. PO SCH (08:11)
[2020-04-10] MEDS: PILOCARPINE 1% OPHTH SOLUTION 15ML BOTTLE. OD SCH ×2 (09:00→19:57)
[2020-04-10] MEDS: MINERAL OIL/PETROLATUM TOPICAL CREAM 113GM JAR. TP SCH ×2 (09:00→19:59)
[2020-04-10] MEDS: FLUTICASONE 50MCG/NASAL SPRAY 16GM BOTTLE. NS SCH (09:00)
--- NOTE | 2020-04-10 09:34 | NUR ---
Pt is compliant and cooperative. No aggression. No agitation. Pt is compliant with his medication and assessment.
[2020-04-10 11:39] LABS: BASO % 1 % (0-3); EOS # 0.4 x10^3/uL (0.0-0.7); EOS % 5 % (0-3); HEMATOCRIT 35.3 % (39.0-53.0); HEMOGLOBIN 12.1 g/dL (13.0-17.5); LYMPH % 12 % (24-48); MEAN CORPUSCULAR HEMOGLOBIN 34 pg (25-35); MEAN CORPUSCULAR HGB CONC 34 g/dL (31-37); MEAN CORPUSCULAR VOLUME 100 fL (79-100); MONO # 0.6 x10^3/uL (0.0-1.1); MONO % 8 % (0-9); NEUT # 6.3 x10^3uL (1.8-7.7); NEUT % 75 % (31-73); PLATELET COUNT 203 x10^3/uL (140-400); RED BLOOD COUNT 3.52 x10^6/uL (4.30-5.70); RED CELL DISTRIBUTION WIDTH 13.6 % (11.5-14.5); WHITE BLOOD COUNT 8.4 x10^3/uL (4.0-11.0)
[2020-04-10 11:55] LABS: ALBUMIN 2.7 g/dL (3.4-5.0); ALBUMIN/GLOBULIN RATIO 0.9 (1.0-1.7); CALCIUM 7.9 mg/dL (8.5-10.1); GFR 71.2; POTASSIUM 3.6 mmol/L (3.5-5.1); TOTAL BILIRUBIN 0.4 mg/dL (0.2-1.0); TOTAL PROTEIN 5.6 g/dL (6.4-8.2)
--- NOTE | 2020-04-10 14:36 | NUR ---
On pts discharge instructions entered : follow up with urology of choice r/t buried penis.
[2020-04-10 16:21] VITALS: BP 146/75
[2020-04-10] MEDS: WARFARIN 1 MG TABLET. PO SCH (17:12)
[2020-04-10] MEDS: MELATONIN 3 MG TABLET PO SCH (19:58)
[2020-04-10] MEDS: PANTOPRAZOLE 40 MG TABLET. PO SCH (19:58)
[2020-04-10] MEDS: QUEtiapine 50 MG TABLET. PO SCH (19:58)
[2020-04-10] MEDS: DONEPEZIL HCL 10 MG TABLET PO SCH (19:58)
[2020-04-10] MEDS: TIMOLOL 0.25% OPHTH SOLUTION 5ML BOTTLE. OD SCH (19:59)
--- NOTE | 2020-04-10 22:33 | PDOC ---
Exam Note: Xander Note: Please also refer to the separate dictated note~for this date of service dictated separately.~Patient seen individually. Discussed the patient with Nursing staff reviewed the chart.~Reviewed interim history and current functioning. Reviewed vital signs,~Labs/ Radiology~and current medications noted below. Continue current treatment with the changes noted in the dictated addendum note Assessment: Vital Signs/I&O: Vital Signs Date Time Temp Pulse Resp B/P (MAP) Pulse Ox O2 Delivery O2 Flow Rate FiO2 04/10/20 16:21 98.0 77 16 146/75 (98) 95 04/09/20 16:11 Room Air I & O 04/09/20 04/09/20 04/10/20 15:00 23:00 07:00 Intake Total 600 ml 120 ml Balance 600 ml 120 ml Labs: Laboratory Tests Test 04/10/20 10:55 White Blood Count 8.4 x10^3/uL (4.0-11.0) Red Blood Count 3.52 x10^6/uL (4.30-5.70) L Hemoglobin 12.1 g/dL (13.0-17.5) L Hematocrit 35.3 % (39.0-53.0) L Mean Corpuscular Volume 100 fL (79-100) Mean Corpuscular Hemoglobin 34 pg (25-35) Mean Corpuscular Hemoglobin Concent 34 g/dL (31-37) Red Cell Distribution Width 13.6 % (11.5-14.5) Platelet Count 203 x10^3/uL (140-400) Neutrophils (%) (Auto) 75 % (31-73) H Lymphocytes (%) (Auto) 12 % (24-48) L Monocytes (%) (Auto) 8 % (0-9) Eosinophils (%) (Auto) 5 % (0-3) H Basophils (%) (Auto) 1 % (0-3) Neutrophils # (Auto) 6.3 x10^3uL (1.8-7.7) Lymphocytes # (Auto) 1.0 x10^3/uL (1.0-4.8) Monocytes # (Auto) 0.6 x10^3/uL (0.0-1.1) Eosinophils # (Auto) 0.4 x10^3/uL (0.0-0.7) Basophils # (Auto) 0.0 x10^3/uL (0.0-0.2) Prothrombin Time 26.1 SEC (9.4-11.4) H Prothrombin Time INR 2.5 (0.9-1.1) H Sodium Level 142 mmol/L (136-145) Potassium Level 3.6 mmol/L (3.5-5.1) Chloride Level 108 mmol/L (98-107) H Carbon Dioxide Level 26 mmol/L (21-32) Anion Gap 8 (6-14) Blood Urea Nitrogen 11 mg/dL (8-26) Creatinine 1.0 mg/dL (0.7-1.3) Estimated GFR (Cockcroft-Gault) 71.2 BUN/Creatinine Ratio 11 (6-20) Glucose Level 141 mg/dL (70-99) H Calcium Level 7.9 mg/dL (8.5-10.1) L Total Bilirubin 0.4 mg/dL (0.2-1.0) Aspartate Amino Transferase (AST) 20 U/L (15-37) Alanine Aminotransferase (ALT) 27 U/L (16-63) Alkaline Phosphatase 55 U/L (46-116) Total Protein 5.6 g/dL (6.4-8.2) L Albumin 2.7 g/dL (3.4-5.0) L Albumin/Globulin Ratio 0.9 (1.0-1.7) L Current Medications: I have reviewed the current psychotropics carefully including drug interactions. Risk benefit ratio favors no change other than as noted in my dictated progress note. Diagnosis: Problems: (1) Major depressive disorder with psychotic features (2) Major neurocognitive disorder (3) Bipolar disorder, curr episode mixed, severe, with psychotic features (4) Psychotic disorder (5) Anxiety disorder (6) Impulse control disorder COURTNEY STARK MD Apr 10, 2020 22:33
[2020-04-11] MEDS: traMADol 50 MG TABLET PO PRN ×2 (03:49→17:13)
[2020-04-11 06:29] VITALS: BP 141/84
[2020-04-11] MEDS: metFORMIN 500 MG TABLET PO SCH ×2 (08:24→17:13)
[2020-04-11] MEDS: GLIMEPIRIDE 2 MG TABLET PO SCH (08:25)
[2020-04-11] MEDS: TAMSULOSIN 0.4 MG CAP.ER.24H. PO SCH (08:25)
[2020-04-11] MEDS: LOSARTAN 25 MG TABLET. PO SCH (08:25)
[2020-04-11] MEDS: ATORVASTATIN CALCIUM 10 MG TABLET. PO SCH (08:26)
[2020-04-11] MEDS: CHOLESTYRAMINE/ASPARTAME 4 GM PACKET PO SCH (08:26)
[2020-04-11] MEDS: ACETAMINOPHEN 500 MG TABLET PO SCH ×2 (08:26→20:55)
[2020-04-11] MEDS: MULTIVITAMIN with MINERAL TABLET. PO SCH (08:26)
[2020-04-11] MEDS: CETIRIZINE HCL 10 MG TABLET PO SCH (08:27)
[2020-04-11] MEDS: CHOLECALCIFEROL (VITAMIN D3) 1,000 UNIT TABLET PO SCH (08:27)
[2020-04-11] MEDS: FUROSEMIDE 20 MG TABLET PO SCH (08:31)
[2020-04-11] MEDS: MINERAL OIL/PETROLATUM TOPICAL CREAM 113GM JAR. TP SCH ×2 (09:00→20:56)
[2020-04-11] MEDS: FLUTICASONE 50MCG/NASAL SPRAY 16GM BOTTLE. NS SCH (09:00)
[2020-04-11] MEDS: PILOCARPINE 1% OPHTH SOLUTION 15ML BOTTLE. OD SCH ×2 (09:00→20:54)
--- NOTE | 2020-04-11 10:03 | PDOC ---
Exam Note: Xander Note: This note is a late entry for 04/09/2020 covers elements not covered in my initial note. Subjective: The patient was seen individually in his room in the evening of 04/09/2020. Per Pamela MA, he slept 5-3/4 hours previous night. He did well at night, had a hard time in the morning, anxious, restless. He complains of having had a nightmare previous night. I met with him in his room. Review of Systems: Ambulation impaired with walker. No CV, , pulmonary, eye system symptoms on review. Mental Status Exam: Reasonably oriented. Speech is coherent. Abstraction fair. Computation is impaired. Language function intact. Attention span short. Mood and affect withdrawn. Laboratory Data: Reviewed. Impression: Bipolar disorder mixed with psychotic features. Psychotic disorder unspecified. Impulse control disorder. Plan: No change from initial note. Assessment: Vital Signs/I&O: Vital Signs Date Time Temp Pulse Resp B/P (MAP) Pulse Ox O2 Delivery O2 Flow Rate FiO2 04/11/20 08:25 82 141/84 04/11/20 08:24 20 04/11/20 06:29 97.5 94 04/09/20 16:11 Room Air I & O 04/10/20 04/10/20 04/11/20 14:59 22:59 06:59 Intake Total 600 ml 360 ml Balance 600 ml 360 ml Labs: Laboratory Tests Test 04/10/20 10:55 White Blood Count 8.4 x10^3/uL (4.0-11.0) Red Blood Count 3.52 x10^6/uL (4.30-5.70) L Hemoglobin 12.1 g/dL (13.0-17.5) L Hematocrit 35.3 % (39.0-53.0) L Mean Corpuscular Volume 100 fL (79-100) Mean Corpuscular Hemoglobin 34 pg (25-35) Mean Corpuscular Hemoglobin Concent 34 g/dL (31-37) Red Cell Distribution Width 13.6 % (11.5-14.5) Platelet Count 203 x10^3/uL (140-400) Neutrophils (%) (Auto) 75 % (31-73) H Lymphocytes (%) (Auto) 12 % (24-48) L Monocytes (%) (Auto) 8 % (0-9) Eosinophils (%) (Auto) 5 % (0-3) H Basophils (%) (Auto) 1 % (0-3) Neutrophils # (Auto) 6.3 x10^3uL (1.8-7.7) Lymphocytes # (Auto) 1.0 x10^3/uL (1.0-4.8) Monocytes # (Auto) 0.6 x10^3/uL (0.0-1.1) Eosinophils # (Auto) 0.4 x10^3/uL (0.0-0.7) Basophils # (Auto) 0.0 x10^3/uL (0.0-0.2) Prothrombin Time 26.1 SEC (9.4-11.4) H Prothrombin Time INR 2.5 (0.9-1.1) H Sodium Level 142 mmol/L (136-145) Potassium Level 3.6 mmol/L (3.5-5.1) Chloride Level 108 mmol/L (98-107) H Carbon Dioxide Level 26 mmol/L (21-32) Anion Gap 8 (6-14) Blood Urea Nitrogen 11 mg/dL (8-26) Creatinine 1.0 mg/dL (0.7-1.3) Estimated GFR (Cockcroft-Gault) 71.2 BUN/Creatinine Ratio 11 (6-20) Glucose Level 141 mg/dL (70-99) H Calcium Level 7.9 mg/dL (8.5-10.1) L Total Bilirubin 0.4 mg/dL (0.2-1.0) Aspartate Amino Transferase (AST) 20 U/L (15-37) Alanine Aminotransferase (ALT) 27 U/L (16-63) Alkaline Phosphatase 55 U/L (46-116) Total Protein 5.6 g/dL (6.4-8.2) L Albumin 2.7 g/dL (3.4-5.0) L Albumin/Globulin Ratio 0.9 (1.0-1.7) L Current Medications: I have reviewed the current psychotropics carefully including drug interactions. Risk benefit ratio favors no change other than as noted in my dictated progress note. Diagnosis: Problems: (1) Psychotic disorder (2) Impulse control disorder (3) Anxiety disorder (4) Bipolar disorder, curr episode mixed, severe, with psychotic features (5) Major depressive disorder with psychotic features MI,MAN M MD Apr 11, 2020 10:03
--- NOTE | 2020-04-11 10:29 | PDOC ---
Exam Note: Xander Note: This note is a late entry for 04/10/2020 covers elements not covered in my initial note. Subjective: The patient was seen individually at length in his room in the evening of 04/10/2020. Per Pamela MA, he is somewhat withdrawn. He had many questions about discharge plans. We addressed potential discharge for this coming week and he wanted me to specify a day and states he wants it fixed. We addressed this at some length. Review of Systems: Ambulation impaired with walker. No CV, , pulmonary, eye system symptoms on review. Mental Status Exam: Reasonably oriented. Speech is coherent. Abstraction fair. Computation is impaired. Language function intact. Attention span short . Mood and affect withdrawn. No suicidal or homicidal ideation. Laboratory Data: Reviewed. Impression: Bipolar disorder mixed with psychotic features. Psychotic disorder unspecified. Impulse control disorder. Plan: Continue psychotropics from initial note. Assessment: Vital Signs/I&O: Vital Signs Date Time Temp Pulse Resp B/P (MAP) Pulse Ox O2 Delivery O2 Flow Rate FiO2 04/11/20 08:25 82 141/84 04/11/20 08:24 20 04/11/20 06:29 97.5 94 04/09/20 16:11 Room Air I & O 04/10/20 04/10/20 04/11/20 14:59 22:59 06:59 Intake Total 600 ml 360 ml Balance 600 ml 360 ml Labs: Laboratory Tests Test 04/10/20 10:55 White Blood Count 8.4 x10^3/uL (4.0-11.0) Red Blood Count 3.52 x10^6/uL (4.30-5.70) L Hemoglobin 12.1 g/dL (13.0-17.5) L Hematocrit 35.3 % (39.0-53.0) L Mean Corpuscular Volume 100 fL (79-100) Mean Corpuscular Hemoglobin 34 pg (25-35) Mean Corpuscular Hemoglobin Concent 34 g/dL (31-37) Red Cell Distribution Width 13.6 % (11.5-14.5) Platelet Count 203 x10^3/uL (140-400) Neutrophils (%) (Auto) 75 % (31-73) H Lymphocytes (%) (Auto) 12 % (24-48) L Monocytes (%) (Auto) 8 % (0-9) Eosinophils (%) (Auto) 5 % (0-3) H Basophils (%) (Auto) 1 % (0-3) Neutrophils # (Auto) 6.3 x10^3uL (1.8-7.7) Lymphocytes # (Auto) 1.0 x10^3/uL (1.0-4.8) Monocytes # (Auto) 0.6 x10^3/uL (0.0-1.1) Eosinophils # (Auto) 0.4 x10^3/uL (0.0-0.7) Basophils # (Auto) 0.0 x10^3/uL (0.0-0.2) Prothrombin Time 26.1 SEC (9.4-11.4) H Prothrombin Time INR 2.5 (0.9-1.1) H Sodium Level 142 mmol/L (136-145) Potassium Level 3.6 mmol/L (3.5-5.1) Chloride Level 108 mmol/L (98-107) H Carbon Dioxide Level 26 mmol/L (21-32) Anion Gap 8 (6-14) Blood Urea Nitrogen 11 mg/dL (8-26) Creatinine 1.0 mg/dL (0.7-1.3) Estimated GFR (Cockcroft-Gault) 71.2 BUN/Creatinine Ratio 11 (6-20) Glucose Level 141 mg/dL (70-99) H Calcium Level 7.9 mg/dL (8.5-10.1) L Total Bilirubin 0.4 mg/dL (0.2-1.0) Aspartate Amino Transferase (AST) 20 U/L (15-37) Alanine Aminotransferase (ALT) 27 U/L (16-63) Alkaline Phosphatase 55 U/L (46-116) Total Protein 5.6 g/dL (6.4-8.2) L Albumin 2.7 g/dL (3.4-5.0) L Albumin/Globulin Ratio 0.9 (1.0-1.7) L Current Medications: I have reviewed the current psychotropics carefully including drug interactions. Risk benefit ratio favors no change other than as noted in my dictated progress note. Diagnosis: Problems: (1) Psychotic disorder (2) Impulse control disorder (3) Bipolar disorder, curr episode mixed, severe, with psychotic features (4) Major depressive disorder with psychotic features MI,MAN M MD Apr 11, 2020 10:29
--- NOTE | 2020-04-11 10:54 | NUR ---
Pt is compliant with his medication and assessment. Pt is compliant and cooperative. No aggression. No agitation.
--- NOTE | 2020-04-11 12:51 | NUR ---
[facility] Social Work Discharge Planning Form Patient Name L[address] HALL Admit Date: 03/28/20 DISCHARGE PLAN Discharge Destination: [facility] Care Assessment: N/A Transportation: [facility] to transport on 04/12/20 at 2pm. Special Instructions/Notes: Upon return to [facility], arrange for f/u appointment with Keila Smyth APRN within 7-10 days. DISCHARGE TO FACILITY Facility: [facility] Address: [address] [place] [address] Contact Name: MICHAEL Madison PCP: Keila Smyth APRN [phone] (fax) Psychiatrist: To be arranged upon Father's return to [facility]
[2020-04-11 16:12] VITALS: BP 145/88
[2020-04-11] MEDS: POTASSIUM CHLORIDE 20 MEQ TABLET.ER. PO SCH (17:13)
[2020-04-11] MEDS: WARFARIN 1 MG TABLET. PO SCH (17:13)
[2020-04-11] MEDS: MELATONIN 3 MG TABLET PO SCH (20:55)
[2020-04-11] MEDS: DONEPEZIL HCL 10 MG TABLET PO SCH (20:55)
[2020-04-11] MEDS: QUEtiapine 50 MG TABLET. PO SCH (20:55)
[2020-04-11] MEDS: PANTOPRAZOLE 40 MG TABLET. PO SCH (20:55)
[2020-04-11] MEDS: TIMOLOL 0.25% OPHTH SOLUTION 5ML BOTTLE. OD SCH (20:55)
--- NOTE | 2020-04-11 22:16 | PDOC ---
Exam Note: Xander Note: Please also refer to the separate dictated note~for this date of service dictated separately.~Patient seen individually. Discussed the patient with Nursing staff reviewed the chart.~Reviewed interim history and current functioning. Reviewed vital signs,~Labs/ Radiology~and current medications noted below. Continue current treatment with the changes noted in the dictated addendum note Assessment: Vital Signs/I&O: Vital Signs Date Time Temp Pulse Resp B/P (MAP) Pulse Ox O2 Delivery O2 Flow Rate FiO2 04/11/20 18:33 20 04/11/20 16:12 98.1 88 145/88 (107) 96 04/09/20 16:11 Room Air I & O 04/10/20 04/10/20 04/11/20 15:00 23:00 07:00 Intake Total 600 ml 360 ml Balance 600 ml 360 ml Current Medications: I have reviewed the current psychotropics carefully including drug interactions. Risk benefit ratio favors no change other than as noted in my dictated progress note. Diagnosis: Problems: (1) Impulse control disorder (2) Psychotic disorder (3) Anxiety disorder (4) Bipolar disorder, curr episode mixed, severe, with psychotic features (5) Major depressive disorder with psychotic features COURTNEY STARK MD Apr 11, 2020 22:16
[2020-04-11] MEDS ORDERED: MAG30ORA2 PO (23:28)
[2020-04-11] MEDS ORDERED: MAGN24003 PO (23:29)
[2020-04-11] MEDS ORDERED: METH28OI2 TP (23:30)
[2020-04-11] MEDS ORDERED: MINE454C9 TP (23:31)
[2020-04-11] MEDS ORDERED: POTA20TA4 PO (23:33)
[2020-04-11] MEDS ORDERED: QUET50TA5 PO (23:34)
[2020-04-11] MEDS ORDERED: WARF1TAB69 PO ×3 (23:58→23:59)
[2020-04-12] MEDS ORDERED: FLUV50TA2 PO
[2020-04-12] MEDS ORDERED: TRAM50TA PO (00:01)
--- NOTE | 2020-04-12 01:31 | NUR ---
Pt has been in his room tonight. He has been pleasant and cooperative and had no behaviors tonight.
[2020-04-12 06:22] VITALS: BP 117/67
[2020-04-12 07:32] LABS: BASO # 0.1 x10^3/uL (0.0-0.2); BASO % 1 % (0-3); EOS # 0.4 x10^3/uL (0.0-0.7); EOS % 5 % (0-3); HEMATOCRIT 33.7 % (39.0-53.0); HEMOGLOBIN 11.5 g/dL (13.0-17.5); LYMPH # 1.2 x10^3/uL (1.0-4.8); LYMPH % 15 % (24-48); MEAN CORPUSCULAR HEMOGLOBIN 34 pg (25-35); MEAN CORPUSCULAR HGB CONC 34 g/dL (31-37); MEAN CORPUSCULAR VOLUME 100 fL (79-100); MONO # 0.8 x10^3/uL (0.0-1.1); MONO % 10 % (0-9); NEUT # 5.7 x10^3uL (1.8-7.7); NEUT % 70 % (31-73); PLATELET COUNT 210 x10^3/uL (140-400); RED BLOOD COUNT 3.37 x10^6/uL (4.30-5.70); RED CELL DISTRIBUTION WIDTH 13.3 % (11.5-14.5); WHITE BLOOD COUNT 8.2 x10^3/uL (4.0-11.0)
[2020-04-12 07:39] LABS: ALBUMIN 2.8 g/dL (3.4-5.0); CALCIUM 8.1 mg/dL (8.5-10.1); CREATININE 0.8 mg/dL (0.7-1.3); GFR 92.1; POTASSIUM 3.7 mmol/L (3.5-5.1); TOTAL BILIRUBIN 0.6 mg/dL (0.2-1.0); TOTAL PROTEIN 5.6 g/dL (6.4-8.2)
[2020-04-12] MEDS ORDERED: IPRA15SP NS (07:46)
[2020-04-12] MEDS ORDERED: WARF1TAB69 PO (07:56)
[2020-04-12] MEDS: CHOLESTYRAMINE/ASPARTAME 4 GM PACKET PO SCH (08:29)
[2020-04-12] MEDS: TAMSULOSIN 0.4 MG CAP.ER.24H. PO SCH (08:30)
[2020-04-12] MEDS: metFORMIN 500 MG TABLET PO SCH (08:30)
[2020-04-12] MEDS: MULTIVITAMIN with MINERAL TABLET. PO SCH (08:30)
[2020-04-12] MEDS: PILOCARPINE 1% OPHTH SOLUTION 15ML BOTTLE. OD SCH (08:30)
[2020-04-12] MEDS: CETIRIZINE HCL 10 MG TABLET PO SCH (08:30)
[2020-04-12] MEDS: ATORVASTATIN CALCIUM 10 MG TABLET. PO SCH (08:30)
[2020-04-12] MEDS: GLIMEPIRIDE 2 MG TABLET PO SCH (08:30)
[2020-04-12] MEDS: ACETAMINOPHEN 500 MG TABLET PO SCH (08:30)
[2020-04-12] MEDS: CHOLECALCIFEROL (VITAMIN D3) 1,000 UNIT TABLET PO SCH (08:30)
[2020-04-12 08:31] VITALS: BP 117/67
[2020-04-12] MEDS: FLUTICASONE 50MCG/NASAL SPRAY 16GM BOTTLE. NS SCH (08:31)
[2020-04-12] MEDS: LOSARTAN 25 MG TABLET. PO SCH (08:31)
[2020-04-12] MEDS: MINERAL OIL/PETROLATUM TOPICAL CREAM 113GM JAR. TP SCH (08:31)
--- NOTE | 2020-04-12 09:50 | PDOC ---
Exam Note: Xander Note: This note is a late entry for 04/11/2020 covers elements not covered in my initial note. Subjective: The patient was seen individually at length in his room in the evening of 04/11/2020. Per Pamela MA, previous night he was snarky, irritable, anxious and somewhat resistive during showers in the evening, withdrawn at times, agitated but redirects. As I met with him in his room he had many questions about who founded [facility]. I explained about [facility] how they landed here and how [place] was the first [facility] in [place] and he seemed very interested with many questions, very appreciative of me visiting with him at the end of the visit. Review of Systems: Ambulation impaired with walker. No CV, , pulmonary, eye system symptoms on review. Mental Status Exam: Reasonably oriented. Speech is coherent. Abstraction fair. Computation is impaired. Language function intact. Mood and affect somewhat anxious but improved. Laboratory Data: Reviewed. Impression: Bipolar disorder mixed with psychotic features. Psychotic disorder unspecified. Impulse control disorder. Plan: Continue psychotropics from initial note. Assessment: Vital Signs/I&O: Vital Signs Date Time Temp Pulse Resp B/P (MAP) Pulse Ox O2 Delivery O2 Flow Rate FiO2 04/12/20 08:31 88 117/67 04/12/20 06:22 97.4 18 96 04/09/20 16:11 Room Air I & O 04/11/20 04/11/20 04/12/20 15:00 23:00 07:00 Intake Total 360 ml 100 ml Balance 360 ml 100 ml Labs: Laboratory Tests Test 04/12/20 06:24 White Blood Count 8.2 x10^3/uL (4.0-11.0) Red Blood Count 3.37 x10^6/uL (4.30-5.70) L Hemoglobin 11.5 g/dL (13.0-17.5) L Hematocrit 33.7 % (39.0-53.0) L Mean Corpuscular Volume 100 fL (79-100) Mean Corpuscular Hemoglobin 34 pg (25-35) Mean Corpuscular Hemoglobin Concent 34 g/dL (31-37) Red Cell Distribution Width 13.3 % (11.5-14.5) Platelet Count 210 x10^3/uL (140-400) Neutrophils (%) (Auto) 70 % (31-73) Lymphocytes (%) (Auto) 15 % (24-48) L Monocytes (%) (Auto) 10 % (0-9) H Eosinophils (%) (Auto) 5 % (0-3) H Basophils (%) (Auto) 1 % (0-3) Neutrophils # (Auto) 5.7 x10^3uL (1.8-7.7) Lymphocytes # (Auto) 1.2 x10^3/uL (1.0-4.8) Monocytes # (Auto) 0.8 x10^3/uL (0.0-1.1) Eosinophils # (Auto) 0.4 x10^3/uL (0.0-0.7) Basophils # (Auto) 0.1 x10^3/uL (0.0-0.2) Prothrombin Time 35.1 SEC (9.4-11.4) H Prothrombin Time INR 3.4 (0.9-1.1) H Sodium Level 141 mmol/L (136-145) Potassium Level 3.7 mmol/L (3.5-5.1) Chloride Level 107 mmol/L (98-107) Carbon Dioxide Level 26 mmol/L (21-32) Anion Gap 8 (6-14) Blood Urea Nitrogen 11 mg/dL (8-26) Creatinine 0.8 mg/dL (0.7-1.3) Estimated GFR (Cockcroft-Gault) 92.1 BUN/Creatinine Ratio 14 (6-20) Glucose Level 62 mg/dL (70-99) L Calcium Level 8.1 mg/dL (8.5-10.1) L Total Bilirubin 0.6 mg/dL (0.2-1.0) Aspartate Amino Transferase (AST) 18 U/L (15-37) Alanine Aminotransferase (ALT) 24 U/L (16-63) Alkaline Phosphatase 50 U/L (46-116) Total Protein 5.6 g/dL (6.4-8.2) L Albumin 2.8 g/dL (3.4-5.0) L Albumin/Globulin Ratio 1.0 (1.0-1.7) Current Medications: I have reviewed the current psychotropics carefully including drug interactions. Risk benefit ratio favors no change other than as noted in my dictated progress note. Diagnosis: Problems: (1) Impulse control disorder (2) Psychotic disorder (3) Bipolar disorder, curr episode mixed, severe, with psychotic features (4) Major depressive disorder with psychotic features (5) Anxiety disorder COURTNEY STARK MD Apr 12, 2020 09:50
--- NOTE | 2020-04-12 10:25 | NUR ---
Patient prem "hello" this morning from room. RN asked patient what was wrong. Pt stated that there was a lady drawing his blood and that she left and he didn't know she left and he felt that was lousy that she would leave without saying anything. RN asked pt if he fell back asleep. Pt stated, "ya maybe I did" RN mentioned that maybe the lab person didn't want to wake him up to tell him she was leaving. Pt still felt this was "lousy" Pt continuing to talk about it this morning. Was compliant with medications and assessment. Pt is excited to leave today. WCTM.
--- NOTE | 2020-04-12 14:00 | NUR ---
Reviewed with Father this morning to wish him well as he transitions back to [facility]. Father thanked this worker for the assistance while on the unit. He is looking forward to returning to the facility in which he resides.
--- NOTE | 2020-04-12 14:51 | NUR ---
Transition Record was faxed to follow-up provider with the following elements: Reason for admission, procedures, tests, principal diagnosis, pending studies, patient instructions, 13/05 contact information for unit, phone number to obtain pending test results, plan for follow-up care, physician follow-up, advanced directive information, and medication list with dose, duration and instructions. This information was included in the following documents: History and physical, lab results, study results, progress notes, social work planning form, DC instruction form, patient visit summary, and medication reconciliation form. Date & time record faxed: 04/12/20 0730 Record faxed to: Gricelda at [facility] Record discussed with/ report given to: Gricelda 04/12/20 1100 Medications faxed to [facility] in [facility].
--- NOTE | 2020-04-12 22:35 | PDOC ---
Exam Note: Xander Note: Please also refer to the separate dictated note~for this date of service dictated separately.~Patient seen individually. Discussed the patient with Nursing staff reviewed the chart.~Reviewed interim history and current functioning. Reviewed vital signs,~Labs/ Radiology~and current medications noted below. Continue current treatment with the changes noted in the dictated addendum note Assessment: Vital Signs/I&O: Vital Signs Date Time Temp Pulse Resp B/P (MAP) Pulse Ox O2 Delivery O2 Flow Rate FiO2 04/12/20 08:31 88 117/67 04/12/20 06:22 97.4 18 96 04/09/20 16:11 Room Air I & O 04/11/20 04/11/20 04/12/20 15:00 23:00 07:00 Intake Total 360 ml 100 ml Balance 360 ml 100 ml Labs: Laboratory Tests Test 04/12/20 06:24 White Blood Count 8.2 x10^3/uL (4.0-11.0) Red Blood Count 3.37 x10^6/uL (4.30-5.70) L Hemoglobin 11.5 g/dL (13.0-17.5) L Hematocrit 33.7 % (39.0-53.0) L Mean Corpuscular Volume 100 fL (79-100) Mean Corpuscular Hemoglobin 34 pg (25-35) Mean Corpuscular Hemoglobin Concent 34 g/dL (31-37) Red Cell Distribution Width 13.3 % (11.5-14.5) Platelet Count 210 x10^3/uL (140-400) Neutrophils (%) (Auto) 70 % (31-73) Lymphocytes (%) (Auto) 15 % (24-48) L Monocytes (%) (Auto) 10 % (0-9) H Eosinophils (%) (Auto) 5 % (0-3) H Basophils (%) (Auto) 1 % (0-3) Neutrophils # (Auto) 5.7 x10^3uL (1.8-7.7) Lymphocytes # (Auto) 1.2 x10^3/uL (1.0-4.8) Monocytes # (Auto) 0.8 x10^3/uL (0.0-1.1) Eosinophils # (Auto) 0.4 x10^3/uL (0.0-0.7) Basophils # (Auto) 0.1 x10^3/uL (0.0-0.2) Prothrombin Time 35.1 SEC (9.4-11.4) H Prothrombin Time INR 3.4 (0.9-1.1) H Sodium Level 141 mmol/L (136-145) Potassium Level 3.7 mmol/L (3.5-5.1) Chloride Level 107 mmol/L (98-107) Carbon Dioxide Level 26 mmol/L (21-32) Anion Gap 8 (6-14) Blood Urea Nitrogen 11 mg/dL (8-26) Creatinine 0.8 mg/dL (0.7-1.3) Estimated GFR (Cockcroft-Gault) 92.1 BUN/Creatinine Ratio 14 (6-20) Glucose Level 62 mg/dL (70-99) L Calcium Level 8.1 mg/dL (8.5-10.1) L Total Bilirubin 0.6 mg/dL (0.2-1.0) Aspartate Amino Transferase (AST) 18 U/L (15-37) Alanine Aminotransferase (ALT) 24 U/L (16-63) Alkaline Phosphatase 50 U/L (46-116) Total Protein 5.6 g/dL (6.4-8.2) L Albumin 2.8 g/dL (3.4-5.0) L Albumin/Globulin Ratio 1.0 (1.0-1.7) Current Medications: I have reviewed the current psychotropics carefully including drug interactions. Risk benefit ratio favors no change other than as noted in my dictated progress note. Diagnosis: Problems: (1) Impulse control disorder (2) Psychotic disorder (3) Anxiety disorder (4) Dementia, vascular, with delusions (5) Dementia, vascular, with delirium (6) Bipolar disorder, curr episode mixed, severe, with psychotic features (7) Major neurocognitive disorder (8) Major depressive disorder with psychotic features (9) Dementia, vascular, with depression COURTNEY STARK MD Apr 12, 2020 22:35
--- NOTE | 2020-04-13 12:23 | DS ---
DATE OF DISCHARGE: 04/12/2020 PSYCHIATRIC DISCHARGE SUMMARY AND PSYCHIATRIC PROGRESS NOTE This late entry date of service 04/12/2020 covers elements not covered in my initial note on 04/12/2020. REASON FOR ADMISSION: Please refer to the admission history for details. 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 The patient has been increasingly verbally aggressive, agitated, tell staff that he has a gun in his room. He threatened staff and talks about killing the president, cursing, talking of running over people's heads. He has been having vivid nightmares, barricades his room door, has poor hygiene. He has failed outpatient psychiatric interventions resulting in this referral due to his dangerous, out of control, unmanageable behaviors. SIGNIFICANT FINDINGS AND CLINICAL COURSE: Following admission, the patient was seen daily individually by myself from a psychiatric standpoint, medical followup with Dr. Hahn/Dr. Manuel. The patient is quite withdrawn, depressed, angry, irritable, labile, making vague threats, stating he opposed the policies of the current president. Adjustments were made in his psychotropics and he was also seen in individual psychotherapy, group therapy and then denied any suicidal or homicidal ideation for several days in a row prior to discharge. He seemed to respond to a combination of Aricept 10 mg at bedtime, Seroquel 50 mg at bedtime, Luvox 50 mg daily because of his obsessive thought processes, melatonin 3 mg at bedtime. REVIEW OF SYSTEMS: Prior to discharge on 04/12/2020, ambulation impaired with walker. No CV, , pulmonary, eye, ENT system symptoms on review. MENTAL STATUS EXAM: The patient is reasonably oriented. Speech is coherent, has some latency. Abstraction fair, computation impaired, language function intact. Mood and affect less withdrawn. No suicidal or homicidal ideation. He does have some short-term memory deficits. CONDITION AT DISCHARGE: Improved. FINAL DIAGNOSES: Major depressive disorder, recurrent with psychotic features, in partial remission; mild cognitive impairment; anxiety disorder, unspecified; impulse control disorder, unspecified. DISCHARGE MEDICATIONS: Please refer to the MRAD. DISCHARGE INSTRUCTIONS: Outpatient psychiatric and medical followup at the senior care. Time for discharge day management greater than 30 minutes. MAN Yossi STARK MD DR: Grover JOB#: [id number] / [id number]
== END 2020-04-12 14:00 | DRG 885 ==
LOC: ER 13:42 → GEROPSY 15:44
PROVIDERS: ADMIT Psychiatry & Neurology Psychiatry; ATTEND Psychiatry & Neurology Psychiatry
DX: F33.3 Major depressive disorder, recurrent, severe with psychotic symptoms (principal); F05 Delirium due to known physiological condition; F63.9 Impulse disorder, unspecified; K21.9 Gastro-esophageal reflux disease without esophagitis; E11.9 Type 2 diabetes mellitus without complications; I10 Essential (primary) hypertension; I48.91 Unspecified atrial fibrillation; H40.9 Unspecified glaucoma; E78.5 Hyperlipidemia, unspecified; F41.9 Anxiety disorder, unspecified; N40.0 Benign prostatic hyperplasia without lower urinary tract symptoms; G30.9 Alzheimer's disease, unspecified; F01.50 Vascular dementia, unspecified severity, without behavioral disturbance, psychotic disturbance, mood disturbance, and anxiety; F42.9 Obsessive-compulsive disorder, unspecified; Z79.899 Other long term (current) drug therapy; Z88.6 Allergy status to analgesic agent; Z88.8 Allergy status to other drugs, medicaments and biological substances
CPT/HCPCS: 36415; 70450; 80053; 80061; 81001; 82306; 82607; 83036; 83540; 83550; 83735; 84436; 84443; 84480; 85025; 85610; 86592; 93005; 97116; 99285-25